=== PATIENT | male | born 1955 | race Hispanic/Latino ===

== ENCOUNTER 2021-02-02 12:36 | Inpatient (IN) | payer OTHER ==
--- OUTSIDE RECORDS SUMMARY | 2021-02-02 12:39 | XMS REPORT | Continuity of Care Document ---
:1955 Author Organization [facility] t Address [address] [place] [address] Care Team Providers Name Role Phone Mark FAIR, Christopher Ross Attending Clinician Doctor Unassigned, Name Attending Clinician Unavailable Problems This patient has no known problems. Allergies, Adverse Reactions, Alerts This patient has no known allergies or adverse reactions. Medications This patient has no known medications. Procedures This patient has no known procedures. Encounters Start End Encounter Admission Attending Care Care Encounter Source Date/Time Date/Time Type Type Clinicians Facility Department ID 2019-11-12 2019-11-12 [facility] HAMILTON Flores [id number] 12:47:59 23:59:00 Encounter Christopher ARNOLD [id number] 2019-11-12 2019-11-12 Orders Doctor WYATT [id number] 00:00:00 00:00:00 Only [facility] piedra [id number] Kimberly [facility] [id number] Results This patient has no known results.
[2021-02-02] MEDS ORDERED: ONDANSETRON 4 MG/2 ML VIAL ONE ×2 (13:32→21:32)
[2021-02-02] MEDS ORDERED: MORPHINE 4 MG/ML SYR ONE ×2 (13:32→21:32)
[2021-02-02 14:03] LABS: Absolute Lymphocytes (CBC) 1.2 K/uL (0.7-4.9); Basophils % 0.2 % (0-1.3); Hematocrit 46.2 % (39.6-49.0); Lymphocytes % 10.1 % (15.3-44.8); MPV 9.8 fL (7.6-11.3)
[2021-02-02 14:05] LABS: Protime INR 1.09
[2021-02-02] MEDS ORDERED: HYDROMORPHONE HCL 1 MG/ML INJ ONE (14:08)
--- NOTE | 2021-02-02 14:09 | RAD REPORT ---
EXAM DESCRIPTION: CT - Angio Aorta For Dissection - 02/02/2021 1:41 pm CLINICAL HISTORY: . Chest and abd pain COMPARISON: None TECHNIQUE: Computed tomography angiography of the chest, abdomen pelvis were obtained. 100 cc Isovue 370 was administered intravenously. Coronal and sagittal reconstruction were performed. MIP 3D reconstruction was performed All CT scans are performed using dose optimization technique as appropriate and may include automated exposure control or mA/KV adjustment according to patient size. FINDINGS: An aortic dissection is not seen. An aortic aneurysm is not displayed. The celiac, SMA and GHAZALA are patent . A lung consolidation is not present. A pericardial effusion is not seen. A pleural effusion is not n oted. The liver,spleen, pancreas adrenals kidneys demonstrate no significant abnormality. The appendix is normal. There no evidence diverticulitis. No ascites is noted. IMPRESSION: Negative for an aortic dissection.
--- NOTE | 2021-02-02 14:13 | RAD REPORT ---
EXAM DESCRIPTION: Hanane Single View02/02/2021 1:26 pm CLINICAL HISTORY: Chest pain COMPARISON: 2010 FINDINGS: The lungs appear clear of acute infiltrate. The heart is normal size IMPRESSION: No acute abnormalities displayed
[2021-02-02 14:29] LABS: Albumin 4.1 g/dL (3.4-5.0); Bilirubin Direct 0.2 mg/dL (0-0.2); Bilirubin Total 0.9 mg/dL (0.2-1.0); Magnesium 2.1 mg/dL (1.8-2.4); Potassium 3.8 mmol/L (3.5-5.1); Protein, Total 8.4 g/dL (6.4-8.2); Troponin (Emerg Dept Use Only) 0.07 ng/mL (0.0-0.045)
[2021-02-02] MEDS ORDERED: LIDOCAINE VISCOUS 2% SOLN 15 ML UDC ONE (14:33)
[2021-02-02] MEDS ORDERED: MAGNES/ALUMIN/SIMET 30ML UCUP ONE (14:33)
--- NOTE | 2021-02-02 15:08 | ER ---
Nurse's Notes [facility] Name: Ignacio Lozano Jr Age: 65 yrs Sex: Male : 1955 Arrival Date: 02/02/2021 Time: 12:38 Bed 5 Private MD: Casimiro Perez V Diagnosis: Chest pain, unspecified;Non-ST elevation (NSTEMI) myocardial infarction Presentation: 02/02 12:52 Chief complaint: Patient states: chest pain started after i climbed about 15 stairs, it tw2 started hurting right in the center, i started sweating when i was on top of the structure, i rested and then it went away, then i went to the office and i was talking and then i started feeling the pain again, with some nausea. Coronavirus screen: At this time, the client does not indicate any symptoms associated with coronavirus-19. Ebola Screen: Patient denies travel to an Ebola-affected area in the 21 days before illness onset. Initial Sepsis Screen: Does the patient meet any 2 criteria? No. Patient's initial sepsis screen is negative. Does the patient have a suspected source of infection? No. Patient's initial sepsis screen is negative. Risk Assessment: Do you want to hurt yourself or someone else? Patient reports no desire to harm self or others. Onset of symptoms was February 02, 2021. 12:52 Method Of Arrival: Wheelchair tw2 12:52 Acuity: DARREN 2 tw2 Triage Assessment: 12:59 General: Appears uncomfortable, Behavior is cooperative, anxious. Pain: Complains of tw2 pain in chest. Cardiovascular: Reports chest pain, diaphoresis. Historical: - Allergies: 12:58 No Known Allergies; tw2 - PMHx: 12:58 GERD; Hypertension; Hyperlipidemia; tw2 - Immunization history:: Adult Immunizations. - Social history:: Smoking status: . - Family history:: not pertinent. - Hospitalizations: : No recent hospitalization is reported. Screenin:11 Abuse screen: Denies threats or abuse. Denies injuries from another. Nutritional bp screening: No deficits noted. Tuberculosis screening: No symptoms or risk factors identified. Fall Risk None identified. Assessment: 13:00 General: SEE TRIAGE NOTE. bp 15:00 Reassessment: No changes from previously documented assessment. Patient and/or family bp updated on plan of care and expected duration. Pain level reassessed. REPEAT EKG UNCHANGED. ADMIT INITIATED. 17:00 Reassessment: No changes from previously documented assessment. Patient and/or family bp updated on plan of care and expected duration. Pain level reassessed. Cardiovascular: Rhythm is sinus rhythm. 19:00 Reassessment: Patient and/or family updated on plan of care and expected duration. Pain ea level reassessed. Patient is alert, oriented x 3, equal unlabored respirations, skin warm/dry/pink. Pt admitted to ER hold. 02/03 06:50 Reassessment: otis [id number] updated for the plan of care. rr5 Vital Signs: 02/02 12:52 BP 157 / 96; Pulse 74; Resp 22; Temp 98(O); Pulse Ox 100% on R/A; Weight 103.42 kg (R); tw2 Height 5 ft. 9 in. (175.26 cm); Pain 9/10; 14:09 BP 148 / 79; Pulse 88; Resp 20; Pulse Ox 95% on R/A; mh5 14:56 BP 154 / 94; Pulse 84; Resp 20; Pulse Ox 97% ; mh5 16:00 BP 146 / 68; Pulse 83; Resp 19; Pulse Ox 96% ; bp 17:00 BP 128 / 65; Pulse 85; Resp 16; Pulse Ox 98% ; bp 18:00 BP 160 / 78; Pulse 76; Resp 16; Pulse Ox 98% ; bp 12:52 Body Mass Index 33.67 (103.42 kg, 175.26 cm) tw2 ED Course: 12:38 Patient arrived in ED. mr 12:38 Casimiro Perez MD is Private Physician. mr 12:53 Triage completed. tw2 12:58 Arm band placed on. EKG completed in triage. Results shown to MD. tw2 12:59 Patient maintains SpO2 saturation greater than 95% on room air. tw2 13:00 Tony Castro, YESENIA is Primary Nurse. bp 13:01 Gonzalo Warner MD is Attending Physician. rn 13:10 Inserted saline lock: 20 gauge in left upper arm, using aseptic technique. Blood bp collected. 13:11 Patient has correct armband on for positive identification. Placed in gown. Bed in low bp position. Call light in reach. Side rails up X2. air sampling and monitoring on. Pulse ox on. NIBP on. 13:14 Inserted saline lock: 20 gauge in left forearm, using aseptic technique. health system 13:15 Warm blanket given. 5 13:16 Basic Metabolic Panel Sent. 5 13:16 CBC with Diff Sent. 5 13:16 LFT's Sent. 5 13:16 Magnesium Sent. 5 13:16 NT PRO-BNP Sent. health system 13:16 PT-INR Sent. health system 13:16 Troponin (emerg Dept Use Only) Sent. 5 13:30 XRAY Chest (1 view) In Process Unspecified. EDMS 13:47 CT Aorta for Dissection In Process Unspecified. EDMS 15:07 Casimiro Perez MD is Hospitalizing Provider. rn 19:13 No provider procedures requiring assistance completed. Patient admitted, IV remains in bp place. Administered Medications: 13:15 Drug: morphine 4 mg Route: IVP; Site: left upper arm; bp 19:03 Follow up: Response: Pain is decreased bp 13:15 Drug: Zofran (Ondansetron) 4 mg Route: IVP; Site: left upper arm; bp 19:03 Follow up: Response: No adverse reaction bp 13:53 Drug: HYDROmorphone 1 mg Route: IVP; Site: left antecubital; bp 19:02 Follow up: Response: No adverse reaction; Pain is decreased bp 14:22 Drug: GI Cocktail without - (Maalox Suspension 30 ml, Lidocaine Liquid 2 % 15 jd3 ml) Route: PO; 19:02 Follow up: Response: No adverse reaction bp 15:30 Drug: Aspirin Chewable Tablet 324 mg Route: PO; bp 19:02 Follow up: Response: No adverse reaction bp 15:30 Drug: Lovenox 1 mg/kg Route: Sub-Q; Site: right lower abdomen; bp 19:02 Follow up: Response: No adverse reaction bp 21:52 Drug: Heparin (ME-Bolus No thrombolytic) - HEParin 60 units/kg {Co-Signature: rr5 ea (Jaswant Carr RN).} Route: IVP; Site: left forearm; 23:47 Follow up: Response: No adverse reaction ea 21:52 Drug: Heparin (ME Drip) 12 units/kg/hr - (HEParin 34476 units, D5W 500 ml) sundeep {Co-Signature: rr5 (Jaswant Carr RN).} Route: IV; Rate: calculated rate; Site: left forearm; 23:46 Follow up: Response: No adverse reaction; IV Status: Infusion continued upon admission ea Outcome: 15:07 Decision to Hospitalize by Provider. rn 19:00 Admitted to ER Hold. Please see [facility] for further documentation. ea 19:00 Condition: stable 19:00 Instructed on the need for admit, Demonstrated understanding of instructions. 02/03 11:31 Patient left the ED. 5 Signatures: Dispatcher [employer] ASAD HedrickPatria mr WarnerGonzalo MD MD rn Wise, Tara, RN RN 2 [facility] Vaishali Tsai RN Francisco J Torres ea, RN RN jd3 Peltier, Brian, RN Jaswant Seay, RN RN rr5 Jaswant Carr RN rr5
--- NOTE | 2021-02-02 15:08 | EDPHYS ---
Physician Documentation [facility] Name: Ignacio Lozano Jr Age: 65 yrs Sex: Male : 1955 Arrival Date: 02/02/2021 Time: 12:38 Bed 5 Private MD: Casimiro Perez V ED Physician Gonzalo Warner HPI: 02/02 13:24 This 65 yrs old Male presents to ER via Wheelchair with complaints of Chest rn Pain. 13:25 The patient or guardian reports chest pain that is located primarily in the substernal rn area. Onset: just prior to arrival. The pain does not radiate. Associated signs and symptoms: Pertinent positives: diaphoresis, Pertinent negatives: shortness of breath, syncope, vomiting. The chest pain is described as aching. Duration: The patient or guardian reports a single episode, that is still ongoing. Modifying factors: The symptoms are alleviated by nothing. the symptoms are aggravated by nothing. Severity of pain: At its worst the pain was moderate in the emergency department the pain is unchanged. The patient has not experienced similar symptoms in the past. The patient has been recently seen by a physician:. Reports climbed 15 flights of stairs, began to feel winded and have chest pain, only lasted for a few minutes, went back to work, then walked down the steps again, started with chest pain this time more severe, assoc with diaphoresis, and still ongoing. Interestingly, states had normal stress test by Dr. Mccormick yesterday. . Historical: - Allergies: 12:58 No Known Allergies; tw2 - PMHx: 12:58 GERD; Hypertension; Hyperlipidemia; tw2 - Immunization history:: Adult Immunizations. - Social history:: Smoking status: . - Family history:: not pertinent. - Hospitalizations: : No recent hospitalization is reported. ROS: 13:25 Constitutional: Negative for fever, chills, and weight loss, Eyes: Negative for injury, rn pain, redness, and discharge, Neck: Negative for injury, pain, and swelling, Cardiovascular: Negative for palpitations, and edema, Respiratory: Negative for shortness of breath, cough, wheezing, and pleuritic chest pain, Abdomen/GI: Negative for abdominal pain, nausea, vomiting, diarrhea, and constipation, Back: Negative for injury and pain, MS/Extremity: Negative for injury and deformity, Skin: Negative for injury, rash, and discoloration, Neuro: Negative for headache, numbness, tingling, and seizure. Exam: 13:25 Constitutional: This is a well developed, well nourished patient who is awake, alert, rn moaning in pain Head/Face: Normocephalic, atraumatic. Neck: Trachea midline, no masses palpated, and no cervical lymphadenopathy. Supple, full range of motion without nuchal rigidity, or vertebral point tenderness. No Meningismus. Cardiovascular: Regular rate and rhythm. No murmur. No pulse deficits. Respiratory: Mild tachypnea, clear breath sounds bilaterally. Abdomen/GI: soft, non-tender Skin: Warm, dry MS/ Extremity: Pulses equal, no cyanosis. Neurovascular intact. Full, normal range of motion. Equal circumference. Neuro: Awake and alert, GCS 15, oriented to person, place, time, and situation. Cranial nerves II-XII grossly intact. Motor strength 5/5 in all extremities. Sensory grossly intact. Cerebellar exam normal. Vital Signs: 12:52 BP 157 / 96; Pulse 74; Resp 22; Temp 98(O); Pulse Ox 100% on R/A; Weight 103.42 kg (R); tw2 Height 5 ft. 9 in. (175.26 cm); Pain 9/10; 14:09 BP 148 / 79; Pulse 88; Resp 20; Pulse Ox 95% on R/A; mh5 14:56 BP 154 / 94; Pulse 84; Resp 20; Pulse Ox 97% ; mh5 16:00 BP 146 / 68; Pulse 83; Resp 19; Pulse Ox 96% ; bp 17:00 BP 128 / 65; Pulse 85; Resp 16; Pulse Ox 98% ; bp 18:00 BP 160 / 78; Pulse 76; Resp 16; Pulse Ox 98% ; bp 12:52 Body Mass Index 33.67 (103.42 kg, 175.26 cm) tw2 MDM: 13:01 Patient medically screened. rn 15:05 Differential diagnosis: abnormal EKG, acute myocardial infarction, acute pericarditis, rn anxiety, coronary artery disease costochondritis, esophagitis, gastritis, gastroesophageal reflux disease (GERD), pleurisy, pneumothorax, stable angina, thoracic aortic disection, unstable angina. The patient was given aspirin in the Emergency Department. Data reviewed: vital signs, nurses notes, lab test result(s), EKG, radiologic studies, CT scan, plain films, and as a result, I will admit patient. Counseling: I had a detailed discussion with the patient and/or guardian regarding: the historical points, exam findings, and any diagnostic results supporting the discharge/admit diagnosis, lab results, radiology results, the need for further work-up and treatment in the hospital. Response to treatment: the patient's symptoms have mildly improved after treatment, and as a result, I will admit patient. Admission orders: after a detailed discussion of the patient's condition and case, the admit orders are written by me. ED course: Consulted with Dr. mccormick, will admit, requests aspirin and lovenox x 1, then will plan for cath tomorrow. Updated patient and son.. 02/02 13:06 Order name: Basic Metabolic Panel 02/02 13:06 Order name: CBC with Diff; Complete Time: 14:21 02/02 13:06 Order name: LFT's; Complete Time: 14:45 02/02 13:06 Order name: Magnesium; Complete Time: 14:45 02/02 13:06 Order name: NT PRO-BNP; Complete Time: 14:45 02/02 13:06 Order name: PT-INR; Complete Time: 14:21 02/02 13:06 Order name: Troponin (emerg Dept Use Only); Complete Time: 14:45 02/02 13:07 Order name: Basic Metabolic Panel; Complete Time: 14:45 [facility] 02/02 19:16 Order name: COVID-19 : Document "Date of Symptom Onset" if Symptomatic. tt3 02/02 20:57 Order name: Troponin I [facility] 02/02 22:31 Order name: CORONAVIRUS [facility] 02/02 23:26 Order name: SARS-COV-2 RT PCR [facility] 02/03 01:10 Order name: CREATININE WHOLE BLOOD [facility] 02/03 01:33 Order name: Troponin I [facility] 02/02 13:06 Order name: XRAY Chest (1 view); Complete Time: 14:21 02/02 13:06 Order name: EKG; Complete Time: 13:07 rn 02/02 13:06 Order name: Cardiac monitoring; Complete Time: 13:11 rn 02/02 13:06 Order name: CT Aorta for Dissection; Complete Time: 14:21 rn 02/03 06:30 Order name: CBC with Automated Diff EDMS 02/03 06:42 Order name: Basic Metabolic Panel EDMS 02/03 06:56 Order name: PTT, Activated Partial Thromb EDMS 02/03 11:09 Order name: PTT, Activated Partial Thromb EDMS 02/02 13:06 Order name: EKG - Nurse/Tech; Complete Time: 13:10 rn 02/02 13:06 Order name: IV Saline Lock; Complete Time: 13: rn 02/02 13:06 Order name: Labs collected and sent; Complete Time: 13: rn 02/02 13:06 Order name: O2 Per Protocol; Complete Time: 13: rn 02/02 13:06 Order name: O2 Sat Monitoring; Complete Time: 13: rn Administered Medications: 13:15 Drug: morphine 4 mg Route: IVP; Site: left upper arm; bp 19:03 Follow up: Response: Pain is decreased bp 13:15 Drug: Zofran (Ondansetron) 4 mg Route: IVP; Site: left upper arm; bp 19:03 Follow up: Response: No adverse reaction bp 13:53 Drug: HYDROmorphone 1 mg Route: IVP; Site: left antecubital; bp 19:02 Follow up: Response: No adverse reaction; Pain is decreased bp 14:22 Drug: GI Cocktail without - (Maalox Suspension 30 ml, Lidocaine Liquid 2 % 15 jd3 ml) Route: PO; 19:02 Follow up: Response: No adverse reaction bp 15:30 Drug: Aspirin Chewable Tablet 324 mg Route: PO; bp 19:02 Follow up: Response: No adverse reaction bp 15:30 Drug: Lovenox 1 mg/kg Route: Sub-Q; Site: right lower abdomen; bp 19:02 Follow up: Response: No adverse reaction bp 21:52 Drug: Heparin (VA-Bolus No thrombolytic) - HEParin 60 units/kg {Co-Signature: rr5 ea (Jaswant Carr RN).} Route: IVP; Site: left forearm; 23:47 Follow up: Response: No adverse reaction ea 21:52 Drug: Heparin (VA Drip) 12 units/kg/hr - (HEParin 85469 units, D5W 500 ml) ea {Co-Signature: rr5 (Jaswant Carr RN).} Route: IV; Rate: calculated rate; Site: left forearm; 23:46 Follow up: Response: No adverse reaction; IV Status: Infusion continued upon admission ea Disposition: 02/02/21 15:07 Hospitalization ordered by Casimiro Perez for Inpatient Admission. Preliminary diagnosis are Chest pain, unspecified, Non-ST elevation (NSTEMI) myocardial infarction. - Bed requested for [facility] ER HOLD. - Status is Inpatient Admission. 5 - Condition is Stable. - Problem is new. - Symptoms have improved. Signatures: Dispatcher [employer] EDMS Gonzalo Warner MD MD rn Calderon, Audri RN YESENIA aa5 Heidy Cardoza RN RN tw2 Jamia Lopes [facility] Vaishali Tsai RN Francisco J Torres ea, RN RN jd3 Tony Castro RN Lebron Gutierrez MD MD tw4 Jaswant Carr RN rr5 Corrections: (The following items were deleted from the chart) 16:47 15:07 Hospitalization Ordered by Casimiro Perez MD for Inpatient Admission. Preliminary aa5 diagnosis is Chest pain, unspecified; Non-ST elevation (NSTEMI) myocardial infarction. Bed requested for Telemetry/MedSurg (Inpatient). Status is Inpatient Admission. Condition is Stable. Problem is new. Symptoms have improved. rn 02/03 11:31 02/02 16:47 02/02/2021 15:07 Hospitalization Ordered by Casimiro Perez MD for Inpatient [facility] Admission. Preliminary diagnosis is Chest pain, unspecified; Non-ST elevation (NSTEMI) myocardial infarction. Bed requested for [facility] ER HOLD. Status is Inpatient Admission. Condition is Stable. Problem is new. Symptoms have improved. aa5
[2021-02-02] MEDS ORDERED: ASPIRIN 81 MG CHEWABLE TABLET ONE (15:31)
[2021-02-02] MEDS ORDERED: ENOXAPARIN 100 MG/ML SYR SQ ONE (15:32)
--- NOTE | 2021-02-02 21:12 | P.SSS ---
Patient History Date of Service: 02/02/21 Reason for admission: CHEST PAIN History of Present Illness: GISELL IS A PATIENT WITH HTN AND NO SMOKING HISTORY. HE HAD STRESS TEST JUST A FEW DAYS AGO AND WAS NEGATIVE. HE WALKED UP 15 STAIRS AT WORK AND HAD CHEST PAIN. HE WAS BROUGHT TO ER. HE SAYS PAIN IMPROVES AFTER MYLANTA. HIS TROPONIN IS MILD HIGH AT0.07, EKG SHOWS RBBB AND IS KEPT OVERNIGHT TO GET CATH DONE IN AM. Allergies Peanut Allergy (Uncoded 08/18/15 17:05) Unknown Strawberries Allergy (Uncoded 08/18/15 17:05) Unknown - Past Medical/Surgical History Has patient received pneumonia vaccine in the past: Yes Diabetic: No Review of Systems 10-point ROS is otherwise unremarkable Physical Examination - Physical Exam General: Oriented x3, Mild distress HEENT: Atraumatic, PERRLA, Mucous membr. moist/pink, EOMI, Sclerae nonicteric Neck: Supple, 2+ carotid pulse no bruit, No LAD, Without JVD or thyroid abnormality Respiratory: Clear to auscultation bilaterally, Normal air movement Cardiovascular: Regular rate/rhythm, Normal S1 S2 Gastrointestinal: Normal bowel sounds, No tenderness Musculoskeletal: No tenderness Integumentary: No rashes Neurological: Normal gait, Normal speech, Normal strength at 5/5 x4 extr, Normal tone, Normal affect Lymphatics: No axilla or inguinal lymphadenopathy - Studies Laboratory Data (last 24 hrs) 02/02/21 13:10: PT 12.5, INR 1.09 02/02/21 13:10: WBC 12.10 H, Hgb 15.5, Hct 46.2, Plt Count 202 02/02/21 13:10: Sodium 141, Potassium 3.8, BUN 12, Creatinine 1.11, Glucose 131 H, Magnesium 2.1, Total Bilirubin 0.9, AST 27, ALT 42, Alkaline Phosphatase 83 - Diagnosis (Problem(s)) (1) Chest pain Current Visit: Yes Status: Acute Plan: PAIN HAS CARDIAC CHARACTER. ST TEST BE NEGATIVE IF THERE IS SIMILAR BILATERAL BLOCKAGE. CATH TO BE DONE IN AM. ASA, LOVENOX UNTIL THEN. - Disposition Disposition: ROUTINE DISCHARGE
[2021-02-02] MEDS: ONDANSETRON 4 MG/2 ML VIAL IV PRN (21:30)
[2021-02-02] MEDS: MORPHINE 4 MG/ML SYR IV PRN (21:30)
[2021-02-02] MEDS ORDERED: HEPARIN/D5W 25,000 UNIT/500 ML BAG IV ONE (22:07)
[2021-02-02] MEDS ORDERED: HEPARIN 5000 UNIT/ML 1 ML VIAL ONE (22:07)
[2021-02-02 23:33] VITALS: BMI 33.6
[2021-02-03] MEDS: MORPHINE 4 MG/ML SYR IV PRN ×2 (03:34→09:06)
[2021-02-03] MEDS: ONDANSETRON 4 MG/2 ML VIAL IV PRN ×2 (03:34→09:07)
[2021-02-03] MEDS ORDERED: MORPHINE 4 MG/ML SYR ONE ×2 (03:51→09:05)
[2021-02-03] MEDS ORDERED: ONDANSETRON 4 MG/2 ML VIAL ONE ×2 (03:51→09:05)
--- NOTE | 2021-02-03 05:11 | EKG ---
Test Date: 2021-02-02 Test Time: 21:18:20 Hair Preparer: PAOLA MEASUREMENT RESULTS: Intervals: Rate: 76 HI: 174 QRSD: 146 QT: 460 QTc: 517 [place]: P: 49 HI: 174 QRS: -83 T: 16 INTERPRETIVE STATEMENTS: Normal sinus rhythm Right bundle branch block Left anterior fascicular block Bifascicular block Septal infarct, age undetermined Lateral infarct, age undetermined Abnormal ECG Compared to ECG 02/02/2021 13:24:33 Myocardial infarct finding now present Left ventricular hypertrophy no longer present Bifascicular block still present Electronically Signed On 02-03-21 05:11:06 STRUCTURAL BIOLOGIST by Regis Mccormick
--- NOTE | 2021-02-03 05:13 | EKG ---
Test Date: 2021-02-02 Test Time: 13:24:33 Casting Machine Service Operator: BP MEASUREMENT RESULTS: Intervals: Rate: 75 [place]: 192 QRSD: 142 QT: 448 QTc: 500 [place]: P: 56 [place]: 192 QRS: -72 T: 29 INTERPRETIVE STATEMENTS: Normal sinus rhythm Right bundle branch block Left anterior fascicular block Bifascicular block Minimal voltage criteria for LVH, may be normal variant Abnormal ECG Compared to ECG 03/02/2000 06:20:00 Right bundle-branch block now present Left anterior fascicular block now present Bifascicular block now present Left ventricular hypertrophy now present Left-axis deviation no longer present Intraventricular conduction delay no longer present Electronically Signed On 02-03-21 05:11:17 FIBER PRODUCT CUTTING MACHINE OPERATOR by Regis Mccormick
--- NOTE | 2021-02-03 05:13 | EKG ---
Test Date: 2021-02-02 Test Time: 12:49:47 Regulatory Affairs Manager: CHARO MEASUREMENT RESULTS: Intervals: Rate: 76 [place]: 176 QRSD: 140 QT: 444 QTc: 499 [place]: P: 47 [place]: 176 QRS: -71 T: 37 INTERPRETIVE STATEMENTS: Normal sinus rhythm Right bundle branch block Left anterior fascicular block Bifascicular block Minimal voltage criteria for LVH, may be normal variant Abnormal ECG Compared to ECG 03/02/2000 06:20:00 Right bundle-branch block now present Left anterior fascicular block now present Bifascicular block now present Left ventricular hypertrophy now present Left-axis deviation no longer present Intraventricular conduction delay no longer present Electronically Signed On 02-03-21 05:11:21 MANAGER E LEARNING by Regis Mccormick
[2021-02-03] MEDS: METOPROLOL TAR 25 MG TAB PO SCH ×2 (06:00→17:29)
[2021-02-03] MEDS ORDERED: METOPROLOL TAR 25 MG TAB ONE (06:03)
[2021-02-03] MEDS ORDERED: ASPIRIN 81 MG CHEWABLE TABLET ONE (06:03)
[2021-02-03 06:22] LABS: Absolute Lymphocytes (CBC) 1.6 K/uL (0.7-4.9); Basophils % 0.4 % (0-1.3); Lymphocytes % 15.3 % (15.3-44.8); MPV 9.8 fL (7.6-11.3); RBC Red Blood Cell Count 4.78 M/uL (4.33-5.43)
[2021-02-03 06:42] LABS: Potassium 3.5 mmol/L (3.5-5.1)
[2021-02-03] MEDS ORDERED: ASPIRIN EC 81 MG TAB PO SCH (09:00)
[2021-02-03] MEDS ORDERED: PNEUMOCOCCAL VACCINE 0.5 ML IMVAC ONE (09:00)
--- NOTE | 2021-02-03 09:14 | CON ---
Date of Consultation: 02/02/2021 Reason For Consultation: Non-ST elevation myocardial infarction. History Of Present Illness: Mr. Lozano is a 65-year-old male, he is known to me from office visits. He recently had complaint of atypical chest pain, had a negative stress test, but [facility] room today after severe exertion with substernal chest pressure radiating to his back, some di aphoresis, nausea, shortness of breath. Denied PND, orthopnea, pedal edema, palpitations, or syncope . EKG showed left anterior hemiblock, but no acute changes, but his troponin was elevated and sugges tive of non-ST elevation myocardial infarction. He received aspirin. He was placed on a heparin dri p. We placed him on low-dose beta-vinh, and statin with the plan to do a heart catheterization on 02/03/2021. Past Medical History: Include gastroesophageal reflux disease, hypertension, dyslipidemia. Allergies: NONE. Review of Systems: Negative. Social History: Negative. Family History: Positive for heart disease. Physical Examination: General: When he first came in, his blood pressure was 157/96 with a pulse of 74, O2 saturation was 100%. He was afebrile. HEENT: Negative. Neck: Supple without any bruit, lymphadenopathy, JVD, or thyromegaly. Chest: Clear to auscultation and percussion. Cardiac: Revealed a regular rhythm and rate. No murmurs, gallops, or rubs. Abdomen: Benign. Extremities: Revealed no clubbing, cyanosis, or edema. Diagnostic Data: There was a white count of 12.1. His creatinine is 1.1. His troponin was 0.07 and a second troponin was . Impression And Plan: 1.Non-ST elevation myocardial infarction. 2.Hypertension. 3.Mixed hyperlipidemia. Plan: Plan is for a heart catheterization on 02/03/2021 to define his coronary anatomy. Understand the risk and the benefits of the procedure and he agrees to proceed. He is on heparin, which we will stop on car supervisor to the animal laboratory technician. He is on aspirin. He is on metoprolol. He is on a statin. We will make further decisions after the catheterization is done. NEIL/POLINA Voice ID: [id number] Report ID: [id number]
[2021-02-03] MEDS ORDERED: LIDOCAINE 1% 20 ML MDV ONE (11:11)
[2021-02-03] MEDS ORDERED: HEPA 1000U/500MLS 2,000 UNIT/1,000 ML BAG IV ONE (11:11)
[2021-02-03] MEDS ORDERED: HEPARIN 5000 UNIT/ML 1 ML VIAL ONE (11:12)
[2021-02-03] MEDS ORDERED: NITROGLYCERIN/D5W 25 MG/250 ML BTL IV ONE (11:13)
[2021-02-03] MEDS ORDERED: FENTANYL CITR 100 MCG/2 ML ONE (11:13)
[2021-02-03] MEDS ORDERED: VERAPAMIL HCL 10 MG/4 ML VIAL IV ONE (11:13)
[2021-02-03] MEDS ORDERED: MIDAZOLAM HCL 2 MG/2 ML INJ ONE (11:13)
[2021-02-03] MEDS ORDERED: ATROPINE SULF 1 MG/10 ML SYR IV ONE (11:13)
[2021-02-03] MEDS ORDERED: NITROGLYCERIN 100 MCG/ML SYR (for cath lab use only) IV ONE (11:13)
[2021-02-03] MEDS ORDERED: NA CHLORIDE 0.9% 500 ML ONE (11:32)
[2021-02-03] MEDS ORDERED: TICAGRELOR 90 MG TABLET PO ONE (11:56)
[2021-02-03] MEDS ORDERED: HEPA 1000U/500MLS 1,000 UNIT/500 ML BAG IV ONE (12:35)
[2021-02-03] MEDS ORDERED: ADENOSINE 6 MG/ 2ML VIAL IV ONE (12:39)
--- NOTE | 2021-02-03 13:28 | OP ---
Date of Procedure: 02/03/2021 Surgeon: ARI DEE Procedures Performed: 1.Selective coronary angiogram. 2.Left heart catheterization. 3.PCI of mid LAD 100% occlusion using 3.0 x 60 mm Synergy drug-eluting stent. Access: Right radial artery 6-Malian closed with TR band. Complications: None. Bleeding: Less than 20 mL. Indication: Acute non-ST elevation myocardial infarction. Description Of Procedure: After risks, benefits, and alternatives were explained, the patient agreed to the procedure and signed informed consent. The patient was brought into the cardiac catheterizat ion laboratory, prepped and draped in usual sterile fashion. Given fentanyl and Versed in incrementa l doses to achieve adequate moderate sedation. Then, we accessed right radial artery using pediatric micropuncture kit and placed a 6-Malian slender sheath and we took a 6-Malian JL 3.5 catheter into t he aortic root, engaged left main, took standard views and then a JR4 catheter into the aortic root, took standard views and proceeded with intervention. Intervention Details: We gave systemic heparin to assure ACT level above 250 and we gave 180 mg load ing dose of Brilinta. The patient already received aspirin today. Then, we took 6-Malian EBU 3.5 gu humberto into the aortic root, engaged left main, took a short Run-Through wire into the left main into th e LAD crossing the mid LAD total occlusion and the wire was placed at the distal LAD vessel and then using a 2.5 x 50 mm Compliant balloon, the area of occlusion was dilated. Then immediately, we had a CHRISTINA-3 flow and placed a 3.0 x 60 mm Synergy drug-eluting stent successfully across the stenosis wit h resultant 0% residual stenosis and CHRISTINA-3 flow. Initial CHRISTINA flow was 0 prior to the PCI. Then, w e removed the wire and the catheter as well as the sheath, and placed TR band with good hemostasis. Findings: 1.Left main is large and normal. 2.LAD, proximal portion is normal, moderate size, mid portion is totally occluded due to acute plaqu e rupture, status post successful PCI as outlined above with resultant CHRISTINA-3 flow. Rest of the LAD is without significant disease. On diagonal 1 branch, there is about 40% ostial otherwise. Diagonal 2 is large and no significant stenosis. 3.Left circumflex, moderate size with luminal irregularities. 4.RCA, large dominant with luminal irregularities. Conclusion: 1.Acute mid LAD 100% stenosis due to plaque rupture, which is a culprit for the SC, status post succ essful PCI as above with resultant CHRISTINA-3 flow, CHRISTINA 0 flow prior to the PCI. 2.Mild coronary artery disease otherwise. Plan: Brilinta 90 mg q.12 hours, aspirin 81 mg daily, Lipitor 80 mg at bedtime. Obtain echo and mary n to start low-dose THAO and beta-vinh. Observe for the next 24 hours. SR/MODL Voice ID: [id number] Report ID: [id number]
[2021-02-03] MEDS ORDERED: NITROGLYCERIN 0.4 MG/TAB SL PRN (14:00)
[2021-02-03] MEDS ORDERED: NA CHLORIDE 0.9% 1,000 ML IV SCH (14:00)
[2021-02-03] MEDS ORDERED: ACETAMINOPHEN 325 MG TABLET PO PRN (14:00)
--- NOTE | 2021-02-03 20:24 | P.PN ---
Subjective Date of Service: 02/03/21 Chief Complaint: CHEST PAIN Subjective: Improving HE IS READY FOR CATH TODAY WHEN I SAW HIM THIS AM. Review of Systems 10-point ROS is otherwise unremarkable Physical Examination - Vital Signs Temperature: 97.6 F Blood Pressure: 124/62 Pulse: 68 Respirations: 16 Pulse Ox (%): 96 - Physical Exam General: Alert, In no apparent distress HEENT: Atraumatic, PERRLA, EOMI Neck: Supple, JVD not distended Respiratory: Clear to auscultation bilaterally, Normal air movement Cardiovascular: Regular rate/rhythm, Normal S1 S2 Gastrointestinal: Normal bowel sounds, No tenderness Musculoskeletal: No tenderness Integumentary: No rashes Neurological: Normal speech, Normal tone, Normal affect Lymphatics: No axilla or inguinal lymphadenopathy - Studies Medications List Reviewed: Yes Assessment And Plan - Current Problems (Diagnosis) (1) Chest pain Current Visit: Yes Status: Acute Plan: PAIN HAS CARDIAC CHARACTER. ST TEST BE NEGATIVE IF THERE IS SIMILAR BILATERAL BLOCKAGE. CATH TO BE DONE IN AM. ASA, LOVENOX UNTIL THEN. (2) NSTEMI (non-ST elevated myocardial infarction) Current Visit: Yes Status: Acute Plan: STENT BLOCKAGE PER DR CASAREZ. CATH AND STENT DILATATION DONE. CONTINUE BRILINTA AND ASPIRIN. DC IN AM.
[2021-02-03] MEDS ORDERED: ATORVASTATIN 80 MG TAB PO SCH (21:00)
[2021-02-03] MEDS ORDERED: ATORVASTATIN 40 MG TAB PO SCH (21:00)
[2021-02-03] MEDS: TICAGRELOR 90 MG TABLET PO SCH (21:19)
[2021-02-04 03:40] VITALS: O2SAT 96
[2021-02-04] MEDS: METOPROLOL TAR 25 MG TAB PO SCH (06:13)
[2021-02-04] MEDS: TICAGRELOR 90 MG TABLET PO SCH (08:57)
--- NOTE | 2021-02-04 08:58 | RAD REPORT ---
EXAM DESCRIPTION: CT - Chest Angio - 02/04/2021 8:42 am CLINICAL HISTORY: Chest pain. chest pain COMPARISON: Angio Aorta For Dissection dated 02/02/2021 TECHNIQUE: CT angiogram of the pulmonary arteries was performed with MIP. All CT scans are performed using dose optimization technique as appropriate and may include automated exposure control or mA/KV adjustment according to patient size. FINDINGS: No evidence of pulmonary thromboembolism. No acute aortic finding demonstrated. The lungs are clear. No significant pericardial or pleural fluid. No concerning bony finding. IMPRESSION: No evidence of pulmonary thromboembolism. No acute lung findings.
[2021-02-04] MEDS ORDERED: ASPIRIN 81 MG CHEWABLE TABLET PO SCH (09:00)
[2021-02-04 12:27] VITALS: BP 114/59; TEMP 97.1
--- NOTE | 2021-02-04 17:42 | P.DS ---
Admission Date: 02/02/21 Discharge Date: 02/04/21 Disposition: ROUTINE DISCHARGE Reason for Admission: CHEST PAIN - Problems (1) Chest pain Status: Acute (2) NSTEMI (non-ST elevated myocardial infarction) Status: Acute Brief History of Present Illness: GISELL IS A PATIENT WITH HTN AND NO SMOKING HISTORY. HE HAD STRESS TEST JUST A FEW DAYS AGO AND WAS NEGATIVE. HE WALKED UP 15 STAIRS AT WORK AND HAD CHEST PAIN. HE WAS BROUGHT TO ER. HE SAYS PAIN IMPROVES AFTER MYLANTA. HIS TROPONIN IS MILD HIGH AT0.07, EKG SHOWS RBBB AND IS KEPT OVERNIGHT TO GET CATH DONE IN AM. Hospital Course: GISELL HAS BLOCKED STENT AND HE IS BETTER NOW. HE HAD STENT REDONE AND HE IS BETTER AND SENT HOME ON BRILLINTA AND ASPIRIN. HE WILL HAVE TO TAKE STATINS. Vital Signs/Physical Exam: Temp Pulse Resp BP Pulse Ox 97.1 F 56 17 114/59 L 97 02/04/21 12:00 02/04/21 12:00 02/04/21 12:00 02/04/21 12:00 02/04/21 12:00 Laboratory Data at Discharge: WBC 10.60 K/uL (4.3-10.9) 02/03/21 06:07 Hgb 14.8 g/dL (13.6-17.9) 02/03/21 06:07 Hct 44.0 % (39.6-49.0) 02/03/21 06:07 Plt Count 202 K/uL (152-406) 02/03/21 06:07 PT 12.5 SECONDS (9.5-12.5) 02/02/21 13:10 INR 1.09 02/02/21 13:10 APTT 78.1 SECONDS (24.3-36.9) H 02/03/21 10:37 Sodium 138 mmol/L (136-145) 02/03/21 06:07 Potassium 3.5 mmol/L (3.5-5.1) 02/03/21 06:07 BUN 11 mg/dL (7-18) 02/03/21 06:07 Creatinine 0.88 mg/dL (0.55-1.3) 02/03/21 06:07 Glucose 104 mg/dL (74-106) 02/03/21 06:07 Magnesium 2.1 mg/dL (1.8-2.4) 02/02/21 13:10 Total Bilirubin 0.9 mg/dL (0.2-1.0) 02/02/21 13:10 AST 27 U/L (15-37) 02/02/21 13:10 ALT 42 U/L (12-78) 02/02/21 13:10 Alkaline Phosphatase 83 U/L (45-117) 02/02/21 13:10 Troponin I 48.20 ng/mL (0.0-0.045) H* D 02/02/21 23:49 Home Medications: Atorvastatin Calcium [Lipitor] 80 mg PO BEDTIME #90 tab 02/04/21 Metoprolol Tartrate [Lopressor*] 25 mg PO BID 6AM 6PM #180 tab 02/04/21 Ticagrelor [Brilinta*] 90 mg PO Q12HR #90 tablet 02/04/21 New Medications: Ticagrelor [Brilinta*] 90 mg PO Q12HR #90 tablet Atorvastatin Calcium [Lipitor] 80 mg PO BEDTIME #90 tab Metoprolol Tartrate [Lopressor*] 25 mg PO BID 6AM 6PM #180 tab Followup: Regis Mccormick MD [ACTIVE - CAN ADMIT] - Casimiro Perez MD [Primary Care Provider] -
== END 2021-02-04 14:28 | disposition home or self-care (01) | DRG 247 ==
LOC: ER 12:36 → ERHOLD 16:24 → 2ND 02-03 14:58
PROVIDERS: ADMIT Internal Medicine; ATTEND Internal Medicine
PROC: 027034Z Dilation of Coronary Artery, One Artery with Drug-eluting Intraluminal Device, Percutaneous Approach (ICD-10-PCS; principal; 2021-02-03)
PROC: 4A023N7 Measurement of Cardiac Sampling and Pressure, Left Heart, Percutaneous Approach (ICD-10-PCS; 2021-02-03)
PROC: B2111ZZ Fluoroscopy of Multiple Coronary Arteries using Low Osmolar Contrast (ICD-10-PCS; 2021-02-03)
DX: I21.4 Non-ST elevation (NSTEMI) myocardial infarction (principal); K21.9 Gastro-esophageal reflux disease without esophagitis; I10 Essential (primary) hypertension; E78.2 Mixed hyperlipidemia; Z91.010 Allergy to peanuts; Z91.018 Allergy to other foods; Z79.899 Other long term (current) drug therapy; Z20.822 Contact with and (suspected) exposure to COVID-19
CPT/HCPCS: 36415; 71045; 71275; 74175; 80048; 80076; 82565; 83735; 83880; 84484; 85025; 85347; 85610; 85730; 93005; 93458; 96372; 99285; C1725; C1893; C9600; J0153; J1170; J1644; J1650; J2250; J2405; J3010; J7040; Q9967; U0003

== ENCOUNTER 2024-01-01 07:05 | Day surgery (SDC) | payer OTHER ==
--- NOTE | 2023-12-28 13:34 | RAD REPORT ---
EXAM DESCRIPTION: Hanane Montalvo And Lat (2 Views)12/28/2023 1:25 pm CLINICAL HISTORY: Preop for cardiac catheterization COMPARISON: 2020 FINDINGS: The lungs appear clear of acute infiltrate. The heart is normal size IMPRESSION: No acute abnormalities displayed
[2023-12-28 13:35] LABS: Hematocrit 42.4 % (39.6-49.0); Lymphocytes % 27.1 % (15.3-44.8); MCV 91.6 fL (80-100); Platelets 182 thou/uL (152-406); RBC Red Blood Cell Count 4.62 M/uL (4.33-5.43)
[2023-12-28 13:36] LABS: Absolute Lymphocytes (CBC) 1.5 K/uL (0.7-4.9)
[2023-12-28 13:46] LABS: Potassium 4.2 mEq/L (3.5-5.1)
[2023-12-28 13:59] LABS: Protime INR 1.13
--- NOTE | 2023-12-31 15:09 | EKG ---
Test Date: 2023-12-28 Test Time: 14:12:17 Photographic Specialist: YRIS MEASUREMENT RESULTS: Intervals: Rate: 55 UT: 122 QRSD: 158 QT: 476 QTc: 455 Bim: P: 13 UT: 122 QRS: -70 T: 61 INTERPRETIVE STATEMENTS: Sinus bradycardia Right bundle branch block Left anterior fascicular block Bifascicular block Minimal voltage criteria for LVH, may be normal variant Septal infarct, age undetermined Abnormal ECG Compared to ECG 02/02/2021 21:18:20 Left ventricular hypertrophy now present Sinus rhythm no longer present Bifascicular block still present Myocardial infarct finding still present Electronically Signed On 12-31-23 15:02:13 WORKFORCE ANALYST by Julián Tran
[2024-01-01] MEDS ORDERED: NA CHLORIDE 0.9% 500 ML ONE (07:17)
[2024-01-01] MEDS ORDERED: VERAPAMIL HCL 10 MG/4 ML VIAL IV ONE (07:26)
[2024-01-01] MEDS ORDERED: FENTANYL CITR 100 MCG/2 ML ONE (07:26)
[2024-01-01] MEDS ORDERED: MIDAZOLAM HCL 2 MG/2 ML INJ ONE (07:27)
[2024-01-01] MEDS ORDERED: HEPARIN 5000 UNIT/ML 1 ML VIAL ONE (07:27)
[2024-01-01] MEDS ORDERED: ATROPINE SULF 1 MG/10 ML SYR IV ONE (07:27)
[2024-01-01] MEDS ORDERED: TICAGRELOR 90 MG TABLET PO ONE (07:28)
[2024-01-01] MEDS ORDERED: HEPARIN 10,000 UNIT/10 ML VIAL IV ONE (07:28)
[2024-01-01] MEDS ORDERED: ASPIRIN 325 MG TAB ONE (07:28)
[2024-01-01] MEDS ORDERED: CLOPIDOGREL 75 MG TABLET ONE (07:28)
[2024-01-01] MEDS ORDERED: LIDOCAINE 1% 20 ML MDV ONE (07:29)
--- NOTE | 2024-01-01 09:27 | OP ---
Date of Procedure: 01/01/2024 Surgeon: ARI DEE Procedures Performed: 1.Selective coronary angiogram. 2.Left heart catheterization. Indication: Chest pain with abnormal stress test. Access: Right radial artery, 6-Bulgarian, closed with TR band. Complications: None. Bleeding: Less than 20 mL. Total Sedation Time: 30 minutes. Description Of Procedure: After risks, benefits, and alternatives were explained, the patient agreed to the procedure and signed informed consent. The patient was brought to the cardiac catheterizatio n laboratory, prepped and draped in usual sterile fashion, then accessed right radial artery using pe diatric micropuncture kit. Placed a 6-Bulgarian Slender sheath, took 5-Bulgarian Keldron 4 catheter into aor tic root, engaged left main and took standard views, and then in the RCA and took standard views, and then the catheter was pushed over the wire into the LV, measured LVEDP. Pullback not recorded any g radient, and then removed the catheter and the sheath, placed TR band with good hemostasis. Findings: 1.Left main: Very large and normal. 2.LAD: Large vessel. In the proximal segment, there is a stent extending to the mid segment with 2 0% ISR. Rest of the LAD is with luminal irregularity. Normal diagonal branches. 3.Left circumflex: Moderate size with proximal 30% and then luminal irregularities. 4.RCA: Large and dominant. Proximal 30%, mid diffuse 30%, and then luminal irregularities. 5.LVEDP of 13 mmHg. Conclusion: Mild nonobstructive coronary artery disease with widely patent LAD stent. Plan: Medical management. /RENATOL Voice ID: [id number] Report ID: [id number]
[2024-01-01 10:07] VITALS: TEMP 97.8
[2024-01-01 11:38] VITALS: BP 150/68; O2SAT 100
== END 2024-01-01 10:35 | disposition home or self-care (01) ==
LOC: CCL 07:05
PROVIDERS: ATTEND Internal Medicine
DX: I25.10 Atherosclerotic heart disease of native coronary artery without angina pectoris (principal); T82.855A Stenosis of coronary artery stent, initial encounter; I45.2 Bifascicular block; I10 Essential (primary) hypertension; E78.2 Mixed hyperlipidemia; K21.9 Gastro-esophageal reflux disease without esophagitis; I25.2 Old myocardial infarction; E66.9 Obesity, unspecified; Z88.8 Allergy status to other drugs, medicaments and biological substances; Z91.010 Allergy to peanuts; Z91.018 Allergy to other foods; Z82.49 Family history of ischemic heart disease and other diseases of the circulatory system
CPT/HCPCS: 93005; 85025; 80048; 36415; 83721; 85610; 85730; 71046; 93458; 76937; C1893; Q9966; J1644; J2001; J2250; J3010; J7040; 99152; 99153; J0461

== ENCOUNTER 2025-03-24 16:39 | Observation (INO) | payer OTHER ==
--- OUTSIDE RECORDS SUMMARY | 2025-03-24 16:44 | XMS REPORT | Continuity of Care Document ---
Author Name Unknown Address [address] [place] [address] [facility] Address [address] [place] [address] Care Team Providers Care Restaurant Shift Leader Name Role Phone Casimiro Rodriges Primary Care Physician [phone] Doctor Unassigned, [place] Attending Clinician U Marv Hernandez Attending Clinician QUINTIN Munguia Attending Clinician RALPH Srinivasan Attending Clinician Ralph Mariee MD Attending Clinician [phone]- [phone] Pob, [facility] Main Attending Clinician Tisha tan Doctor Unassigned, [place] Attending Clinician Gisella Gutierrez RN, Nubia Sterling Attending Clinician CARRIE Glover Attending Clinician Carrie Gupta Attending Clinician [phone] Fermin Sharpe MD Attending Clinician [phone] FERMIN SHARPE Attending Clinician Marv Velarde Admitting Clinician RALPH Carbajal Admitting Clinician Leeanna Mack MD, Ralph Smith Admitting Clinician [phone] FERMIN SHARPE Admitting Clinician Unavailabl e Payers Payer Name Policy Type Policy Number Effective Date Expirati on Date Source [employer] MANAGED MEDICARE [id number] 2020 00:00:00 MEDICARE PART A \T\ B [id number] 2018 00:00:00 [employer] INDEMNITY [id number] 2018 00:00:00 Problems Condition Name Condition Details Condition Category Status Onset Date Resolution Date Last Treatment Date Treating Clinician Comments Source Pain of left knee joint Pain of Left Knee Joint Problem Active 12-02 00:00: 00 [facility] Osteoarthr itis of left knee joint Osteoarthr itis of Left Knee Joint Problem Active 12-02 00:00: 00 [facility] Effusion of joint of right knee Effusion of Joint of Right Knee Problem Active 12-02 00:00: 00 [facility] Pain in lower limb Pain in Lower Limb Problem Active 2023-11 00:00: 00 [facility] 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 Problem Active 2023-11 00:00: 00 [facility] Pain in bilateral lower legs Pain in Bilateral Lower Legs Problem Active 2023-11 00:00: 00 [facility] Osteoarthr itis of right knee joint Osteoarthr itis of Right Knee Joint Problem Active 2023-11 00:00: 00 [facility] Pain of right knee joint Pain of Right Knee Joint Problem Active 2023-11 00:00: 00 [facility] K62.5 K62.5 Active [facility]/2022 [facility] Active 8-10 00:00: 00 2022-08-02 13:28:00 Angela Helms COLONOSCOP Y COLONOSCOP Y Active 07/05/2022 [facility] Diagnosis Active 07-05 00:00: 00 2022-08-03 05:45:00 Angela Helms Right shoulder pain Right shoulder pain Disease Active 2015-11 00:00: 00 [facility] Right shoulder pain Right shoulder pain Disease Active 2015-11 00:00: 00 [facility] Degenerati on of lumbar interverte bral disc Degenerati on of Lumbar Interverte bral Disc Problem Active 2012-11 00:00: 00 [facility] Myocardial infarction (disorder) Myocardial infarction (disorder) Resolved Problem 08/18/2022 [facility] Problem Resolve d 2022-08-18 03:35:20 Angela Helms Simple obesity (disorder) Simple obesity (disorder) Active Problem 08/18/2022 [facility] Problem Active 2022-08-18 03:35:20 Angela Helms Gastroesop hageal reflux disease (disorder) Gastroesop hageal reflux disease (disorder) Active Problem 08/18/2022 [facility] Problem Active 2022-08-18 03:35:20 Angela Helms Hypertensi ve disorder, systemic arterial (disorder) Hypertensi ve disorder, systemic arterial (disorder) Active Problem 08/18/2022 [facility] Problem Active 2022-08-18 03:35:20 Angeal Helms Allergies, Adverse Reactions, Alerts Allergy Name Allergy Type Status Severity Reaction(s) Onset Date Inactive Date Treating Clinician Comments Source losartan DA Active U UNKNOWN 2023-11 00:00: 00 [facility] alfuzosi n DA Active U UNKNOWN 2023-11 00:00: 00 [facility] tamsulos in DA Active U UNKNOWN 2023-11 00:00: 00 [facility] dutaster justin DA Active U UNKNOWN 2023-11 00:00: 00 [facility] silodosi n DA Active U UNKNOWN 2023-11 00:00: 00 [facility] omeprazo le DA Active U UNKNOWN 2023-11 00:00: 00 [facility] omeprazo le DA Active U UNKNOWN 2023-11 00:00: 00 [facility] losartan DA Active U UNKNOWN 2023-11 00:00: 00 [facility] alfuzosi n DA Active U UNKNOWN 2023-11 00:00: 00 [facility] tamsulos in DA Active U UNKNOWN 2023-11 00:00: 00 [facility] dutaster justin DA Active U UNKNOWN 2023-11 00:00: 00 [facility] silodosi n DA Active U UNKNOWN 2023-11 00:00: 00 [facility] ATORVAST ATIN DRUG INGREDI Active Unknown-Cmnt 2016-11 00:00: 00 [facility] TAMSULOS IN DRUG INGREDI Active Unknown-Cmnt 2016-11 00:00: 00 [facility] Atorvast atin Propensi ty to adverse reaction s Active Unknown - See comments 2016-11 00:00: 00 [facility] Tamsulos in Propensi ty to adverse reaction s Active Unknown - See comments 2016-11 00:00: 00 [facility] DICLOFEN AC DRUG INGREDI Active Other-Cmnt 2015-11 00:00: 00 [facility] Diclofen ac Propensi ty to adverse reaction s Active Other - See comments 2015-11 00:00: 00 Caused vibration s in his ear [facility] ALFUZOSI N DRUG INGREDI Active Unknown-Cmnt 2015-11 00:00: 00 [facility] TREE NUTS Food Active Anaphylaxis 2015-11 00:00: 00 [facility] CRANBERR Y DRUG INGREDI Active Anaphylaxis 2015-11 00:00: 00 [facility] LOSARTAN DRUG INGREDI Active SOB 2015-11 00:00: 00 [facility] OMEPRAZO LE DRUG INGREDI Active N/V 2015-11 00:00: 00 [facility] PEANUT DRUG INGREDI Active Anaphylaxis 2015-11 00:00: 00 [facility] SILODOSI N DRUG INGREDI Active Unknown-Cmnt 2015-11 00:00: 00 [facility] STRAWBER RY FLAVOR DRUG INGREDI Active Hives 2015-11 00:00: 00 [facility] Alfuzosi n Propensi ty to adverse reaction s Active Unknown - See comments 2015-11 00:00: 00 [facility] Tree Nuts Propensi ty to adverse reaction s Active Anaphylaxis 2015-11 00:00: 00 [facility] Cranberr y Propensi ty to adverse reaction s Active Anaphylaxis 2015-11 00:00: 00 [facility] Losartan Propensi ty to adverse reaction s Active Shortness of Breath 2015-11 00:00: 00 [facility] Omeprazo le Propensi ty to adverse reaction s Active Nausea and/or Vomiting 2015-11 00:00: 00 [facility] Peanut Propensi ty to adverse reaction s Active Anaphylaxis 2015-11 00:00: 00 [facility] Silodosi n Propensi ty to adverse reaction s Active Unknown - See comments 2015-11 00:00: 00 Doesn't remember [facility] Strawber ry Flavor Propensi ty to adverse reaction s Active Hives 2015-11 00:00: 00 [facility] DUTASTER JUSTIN-TAMS ULOSIN DRUG Active Other-Cmnt 2013-11 00:00: 00 [facility] Dutaster justin-Tams ulosin Propensi ty to adverse reaction s Active Other - See comments 2013-11 00:00: 00 [facility] No Known Contrast Allergie s DA Active U 2002-11 00:00: 00 [facility] No Known Drug Allergie s DA Active U 2002-11 00:00: 00 [facility] No Known Food Allergie s DA Active U 2002-11 00:00: 00 [facility] No Known Other Allergie s DA Active U 2002-11 00:00: 00 [facility] cranberr y cranberr y Active [facility] dutaster justin-tams ulosin dutaster justin-tams ulosin Active [facility] Food Strawber jose manuel Food Strawber jose manuel Active [facility] Rapaflo Rapaflo Active [facility] Lactose Allergy to substanc e Active [facility] Losartan Potassiu m Losartan Potassiu m Active [facility] omeprazo le omeprazo le Active [facility] [place] Milk Allergy to substanc e Active [facility] atorvast atin atorvast atin Active [facility] Peanut Allergy to substanc e Active [facility] Alfuzosi n Hydrochl oride Alfuzosi n Hydrochl oride Active [facility] Social History Social Habit Start Date Stop Date Quantity Comments Source [facility] 2022 14:54:52 2022 14:54:52 [facility] History of Social function 2022-04-20 00:00:00 2022-04-20 00:00:00 [facility] Exposure to SARS-CoV-2 (event) 2022-04-08 00:00:00 2022-04-18 10:05:00 Not sure [facility] Alcohol intake 2022-04-18 00:00:00 2022-04-18 00:00:00 0 /d [facility] Alcoholic beverage intake 2017-10-08 00:00:00 2017-10-08 00:00:00 0 /d [facility] Tobacco use and exposure 2016-10-05 00:00:00 2016-10-05 00:00:00 Smokeless tobacco non-user [facility] Sex assigned at 1955 00:00:00 1955 00:00:00 [facility] Smoking Status Start Date Stop Date Source Never Smoker [facility] Medications Ordered Medication Name Filled Medication Name Start Date Stop Date Current Medication? Ordering Clinician Indication Dosage Frequency Signature (SIG) Comments Components Source Sodium Chloride 0.9% IV 1,000 mL 08-03 12:06: 00 No 1,000 mL, Rate: 21 ml/hr, Infuse over: 47.6 hr, Route: IV, Dosing Weight 96.136 kg, Total Volume: 1,000, Start date: 08/03/22 7:06:00 CDT, Duration: 30 day, Stop date: 09/02/22 7:05:00 CDT, BSA: 2.18 m2, 0 Angela Helms Fish Oil 08-01 14:58: 00 Yes PO, 0 Refill(s) Angela Helms pantoprazol e 08-01 14:58: 00 Yes 40 mg, PO, Daily, # 30 tab, 0 Refill(s) Angela Helms spironolact one 100 mg oral tablet 08-01 14:58: 00 Yes 100 mg = 1 tab, PO, Daily, 0 Refill(s) Angela Helms Probiotic Formula 08-01 14:58: 00 Yes PO, Daily, 0 Refill(s) Angela Helms metoprolol tartrate 25 mg oral tablet 08-01 14:57: 00 Yes 25 mg = 1 tab, PO, BID, 0 Refill(s) Angela Helms Clenpiq oral solution 07-05 19:50: 00 Yes See Instructio ns, 160 mL PO One bottle in the evening and one bottle in the morning. Follow instructio ns given by provider., # 1 kit, 0 Refill(s) Angela Helms NIFEdipine 0.2% - lidocaine 5% compound cream 07-05 19:48: 00 Yes = 1 appl, TOP, TID, Apply to affected area as directed, # 30 gm, 1 Refill(s), 175.26, cm, 07/05/22 14:42:00 CDT, Height, 97.813, kg, 07/05/22 14:42:00 CDT, Weight Angela Helms neomycin-po lymyxin-dex amethasone (MAXITROL) 3.5 mg/g-10,000 unit/g-0.1 % ophthalmic ointment 04-20 15:38: 00 04-20 15:42 :06 No PRN, Starting on Joanna 04/20/22 at 1038, Until Joanna 04/20/22 at 1042, Routine, Intra-op [facility] gentamicin injection 04-20 15:38: 00 04-20 15:42 :06 No PRN, Starting on Joanna 04/20/22 at 1038, Until Joanna 04/20/22 at 1042, JUANCARLOS, Intra-op [facility] dexamethaso ne (DECADRON PHOSPHATE) injection 04-20 15:38: 00 04-20 15:42 :06 No PRN, Starting on Joanna 04/20/22 at 1038, Until Joanna 04/20/22 at 1042, Routine, Intra-op [facility] ceFAZolin (ANCEF) injection 04-20 15:38: 00 04-20 15:42 :06 No PRN, Starting on Joanna 04/20/22 at 1038, Until Joanna 04/20/22 at 1042, JUANCARLOS, Intra-op [facility] EPINEPHrine (PF) 1:1,000 (1 mg/mL) (ADRENALIN (PF)) injection 04-20 15:25: 00 04-20 15:42 :06 No PRN, Starting on Joanna 04/20/22 at 1025, Until Joanna 04/20/22 at 1042, Routine, Intra-op [facility] chondroitin sulf-sod hyaluronate (DUOVISC VISCO ELASTIC) intraocular injection 04-20 15:25: 00 04-20 15:42 :06 No PRN, Starting on Joanna 04/20/22 at 1025, Until Joanna 04/20/22 at 1042, Routine, Intra-op [facility] balanced salt soln no.2 irrig. (BSS) ophthalmic solution 04-20 15:25: 00 04-20 15:42 :06 No PRN, Starting on Joanna 04/20/22 at 1025, Until Joanna 04/20/22 at 1042, Routine, Intra-op [facility] NaCl 0.9% (NS) injection 04-20 15:24: 00 04-20 15:42 :06 No PRN, Starting on Joanna 04/20/22 at 1024, Until Joanna 04/20/22 at 1042, Routine, Intra-op [facility] water for irrigation irrigation solution 04-20 15:23: 00 04-20 15:42 :06 No PRN, Starting on Joanna 04/20/22 at 1023, Until Joanna 04/20/22 at 1042, Routine, Intra-op [facility] tetracaine (PONTOCAINE ) 0.5 % ophthalmic drops 04-20 15:21: 00 04-20 15:42 :06 No PRN, Starting on Joanna 04/20/22 at 1021, Until Joanna 04/20/22 at 1042, Routine, Intra-op [facility] eye block syringe 11 mL 04-20 15:20: 00 04-20 15:42 :06 No PRN, Starting on Joanna 04/20/22 at 1020, Until Joanna 04/20/22 at 1042, Intra-op [facility] cyclopent 1%-tropic 1%-phenyl 2.5%-ketor 0.5% (MYDRIATIC #5) ophthalmic solution syringe 0.5 mL 04-20 14:15: 00 04-20 14:07 :00 No .5mL 0.5 mL, Right Eye, ONCE, 1 dose, On Joanna 04/20/22 at 0915, Routine, DSU Pre-op [facility] lactated ringers IV infusion 1,000 mL 04-20 14:15: 00 04-20 14:15 :00 No 1000mL at 42 mL/hr, 1,000 mL, IV Infusion, ONCE, 1 dose, On Joanna 04/20/22 at 0915, Routine, DSU Pre-op [facility] TRAMADOL HCL (TRAMADOL ORAL) 04-20 11:34: 41 Yes Take by mouth. [facility] omega-3 fatty acids-vitam in E (FISH OIL) 1,000 mg capsule 04-20 11:34: 41 Yes 1g Take 1 g by mouth daily. [facility] Lactobacill us acidophilus (PROBIOTIC) 10 billion cell capsule 04-20 11:34: 41 Yes Take by mouth. [facility] Cholecalcif desiree, Vitamin D3, 25 mcg (1,000 unit) capsule 04-20 11:34: 41 Yes 25ug Take 25 mcg by mouth daily. [facility] irbesartan 150 mg tablet 04-20 11:34: 41 Yes 150mg Take 150 mg by mouth at bedtime. [facility] vitamin B-12 (VITAMIN B-12) 1,000 mcg tablet 04-20 11:34: 41 Yes 1000ug Take 1,000 mcg by mouth daily. [facility] coenzyme Q10 100 mg softgel 04-20 11:34: 41 Yes 100mg Take 100 mg by mouth daily. [facility] metoprolol tartrate 25 mg tablet 04-20 11:34: 41 Yes 25mg Take 25 mg by mouth 2 (two) times daily. [facility] omega-3 fatty acids-vitam in E (FISH OIL) 1,000 mg capsule 04-20 11:34: 41 Yes 1g Take 1 g by mouth daily. [facility] ESOMEPRAZOL E MAGNESIUM (NEXIUM ORAL) 04-18 09:54: 52 04-18 00:00 :00 No Take by mouth. [facility] gabapentin 100 mg capsule 04-05 00:00: 00 Yes 100mg Take 100 mg by mouth 3 (three) times daily. [facility] TRAMADOL HCL (TRAMADOL ORAL) 2016-11 22:32: 07 Yes Take by mouth. [facility] ESOMEPRAZOL E MAGNESIUM (NEXIUM ORAL) 2016-11 22:32: 07 Yes Take by mouth. [facility] omega-3 fatty acids-vitam in E (FISH OIL) 1,000 mg capsule 2016-11 22:32: 07 Yes 1g Take 1 g by mouth daily. [facility] MULTIVIT-TX NERALS/FERR OUS FUM (MULTI VITAMIN ORAL) 2016-11 22:32: 07 Yes Take by mouth. [facility] CALCIUM CARBONATE/V ITAMIN D3 (CALCIUM + D ORAL) 2016-11 22:32: 07 Yes Take by mouth. [facility] L. RHAMNOSUS GG/INULIN (CULTURELLE PROBIOTICS ORAL) 2016-11 22:32: 07 Yes Take by mouth. [facility] Lactobacill us acidophilus (PROBIOTIC) 10 billion cell capsule 2016-11 22:32: 07 Yes Take by mouth. [facility] TRAMADOL HCL (TRAMADOL ORAL) 2016-11 16:32: 07 Yes Take by mouth. [facility] omega-3 fatty acids-vitam in E (FISH OIL) 1,000 mg capsule 2016-11 16:32: 07 Yes 1g Take 1 g by mouth daily. [facility] Lactobacill us acidophilus (PROBIOTIC) 10 billion cell capsule 2016-11 16:32: 07 Yes Take by mouth. [facility] methylPREDN ISolone (MEDROL, DILSHAD,) 4 mg tablets 2016-11 00:00: 00 Yes 84mg Take 21 tablets by mouth SEE-INSTRU CTIONS. follow package directions [facility] DEXILANT 60 mg capsule 2016-11 0- 00:00: 00 04-18 00:00 :00 No TAKE ONE CAPSULE BY MOUTH EVERY DAY [facility] PROCTOSOL HC 2.5 % rectal cream 2015-11 00:00: 00 Yes APPLY RECTALLY 2 TIMES A DAY FOR 7 DAYS [facility] pentazocine -naloxone (TALWIN NX) 50-0.5 mg tablet 2015-11 00:00: 00 Yes 1{tbl} Take 1 tablet by mouth every 6 (six) hours as needed for Pain. [facility] proMETHazin e (PHENERGAN) 25 mg tablet 2015-11 00:00: 00 Yes 1 - 2 by mouth every 4-6 hours as needed for N/V [facility] diclofenac (VOLTAREN) 75 mg EC tablet 2015-11 00:00: 00 Yes 75mg Take 1 tablet by mouth 2 (two) times daily with meals. [facility] valsartan (DIOVAN) 160 mg tablet 08-25 00:00: 00 Yes [facility] Diovan 80 mg tablet RX by other Diovan 80 mg tablet RX by other 2012-11 00:00: 00 No Diovan 80 mg tablet RX by other [facility] Lipitor 10 mg tablet RX by other Lipitor 10 mg tablet RX by other 2012-11 00:00: 00 No Lipitor 10 mg tablet RX by other MD [facility] Mobic 7.5 mg tablet take 1 tablet bid with food after steriods are completed Mobic 7.5 mg tablet take 1 tablet bid with food after steriods are completed 2012-11 00:00: 00 No Mobic 7.5 mg tablet take 1 tablet bid with food after steriods are completed [facility] Nexium Packet 10 mg granules delayed release for susp RX by other Nexium Packet 10 mg granules delayed release for susp RX by other 2012-11 00:00: 00 No Nexium Packet 10 mg granules delayed release for susp RX by other MD [facility] prednisone 10 mg tablet take tablets 6,5,4,3,2,1 prednisone 10 mg tablet take tablets 6,5,4,3,2,1 2012-11 00:00: 00 No prednisone 10 mg tablet take tablets 6,5,4,3,2, 1 [facility] amoxicillin 500 mg tablet TAKE 1 TABLET BY MOUTH THREE TIMES A DAY amoxicillin 500 mg tablet TAKE 1 TABLET BY MOUTH THREE TIMES A DAY No amoxicilli n 500 mg tablet TAKE 1 TABLET BY MOUTH THREE TIMES A DAY [facility] atorvastati n 80 mg tablet TAKE 1 TABLET BY MOUTH EVERY DAY atorvastati n 80 mg tablet TAKE 1 TABLET BY MOUTH EVERY DAY No atorvastat in 80 mg tablet TAKE 1 TABLET BY MOUTH EVERY DAY [facility] bromphenira mine-pseudo ephedrine-D M 2 mg-30 mg-10 mg/5 mL oral syrup TAKE 10 ML BY MOUTH 4 TIMES A DAY NEEDED bromphenira mine-pseudo ephedrine-D M 2 mg-30 mg-10 mg/5 mL oral syrup TAKE 10 ML BY MOUTH 4 TIMES A DAY NEEDED No bromphenir amine-pseu doephedrin e-DM 2 mg-30 mg-10 mg/5 mL oral syrup TAKE 10 ML BY MOUTH 4 TIMES A DAY NEEDED [facility] cabergoline 0.5 mg tablet TAKE 1 TABLET TWICE A WEEK BY ORAL ROUTE DIRECTED, FOR FOR INTIMACY ISSUES. cabergoline 0.5 mg tablet TAKE 1 TABLET TWICE A WEEK BY ORAL ROUTE DIRECTED, FOR FOR INTIMACY ISSUES. No cabergolin e 0.5 mg tablet TAKE 1 TABLET TWICE A WEEK BY ORAL ROUTE DIRECTED, FOR FOR INTIMACY ISSUES. [facility] cholecalcif desiree (vitamin D3) 50 mcg (2,000 unit) capsule TAKE 1 CAPSULE BY MOUTH EVERY DAY cholecalcif desiree (vitamin D3) 50 mcg (2,000 unit) capsule TAKE 1 CAPSULE BY MOUTH EVERY DAY No cholecalci ferol (vitamin D3) 50 mcg (2,000 unit) capsule TAKE 1 CAPSULE BY MOUTH EVERY DAY [facility] clopidogrel 75 mg tablet TAKE 1 TABLET BY MOUTH EVERY DAY clopidogrel 75 mg tablet TAKE 1 TABLET BY MOUTH EVERY DAY No clopidogre l 75 mg tablet TAKE 1 TABLET BY MOUTH EVERY DAY [facility] famotidine 20 mg tablet TAKE 1 TABLET BY MOUTH TWICE A DAY BEFORE MEALS famotidine 20 mg tablet TAKE 1 TABLET BY MOUTH TWICE A DAY BEFORE MEALS No famotidine 20 mg tablet TAKE 1 TABLET BY MOUTH TWICE A DAY BEFORE MEALS [facility] gabapentin 300 mg capsule TAKE 1 CAPSULE BY MOUTH THREE TIMES A DAY gabapentin 300 mg capsule TAKE 1 CAPSULE BY MOUTH THREE TIMES A DAY No gabapentin 300 mg capsule TAKE 1 CAPSULE BY MOUTH THREE TIMES A DAY [facility] methylpredn isolone 4 mg tablets in a dose pack TAKE 1 TABLET BY MOUTH DIRECTED DIRECTED PLEASE FOLLOW PACKAGE INSTRUCTION methylpredn isolone 4 mg tablets in a dose pack TAKE 1 TABLET BY MOUTH DIRECTED DIRECTED PLEASE FOLLOW PACKAGE INSTRUCTION No methylpred nisolone 4 mg tablets in a dose pack TAKE 1 TABLET BY MOUTH DIRECTED DIRECTED PLEASE FOLLOW PACKAGE INSTRUCTIO N [facility] pantoprazol e 40 mg tablet,nayeli yed release TAKE 1 TABLET BY MOUTH EVERY DAY 1 HOUR BEFORE FOOD IN THE MORNING pantoprazol e 40 mg tablet,nayeli yed release TAKE 1 TABLET BY MOUTH EVERY DAY 1 HOUR BEFORE FOOD IN THE MORNING No pantoprazo le 40 mg tablet,del ayed release TAKE 1 TABLET BY MOUTH EVERY DAY 1 HOUR BEFORE FOOD IN THE MORNING [facility] spironolact one 25 mg tablet TAKE 1 TABLET BY MOUTH EVERY DAY spironolact one 25 mg tablet TAKE 1 TABLET BY MOUTH EVERY DAY No spironolac tone 25 mg tablet TAKE 1 TABLET BY MOUTH EVERY DAY [facility] tadalafil 20 mg tablet TAKE ONE (1) TABLET(S) BY MOUTH EVERY 72 HOURS NEEDED. tadalafil 20 mg tablet TAKE ONE (1) TABLET(S) BY MOUTH EVERY 72 HOURS NEEDED. No tadalafil 20 mg tablet TAKE ONE (1) TABLET(S) BY MOUTH EVERY 72 HOURS NEEDED. [facility] terazosin 5 mg capsule TAKE 1 CAPSULE BY MOUTH EVERYDAY AT BEDTIME terazosin 5 mg capsule TAKE 1 CAPSULE BY MOUTH EVERYDAY AT BEDTIME No terazosin 5 mg capsule TAKE 1 CAPSULE BY MOUTH EVERYDAY AT BEDTIME [facility] triamcinolo ne acetonide 0.1 % topical cream APPLY TO AFFECTED AREA EVERY DAY NEEDED triamcinolo ne acetonide 0.1 % topical cream APPLY TO AFFECTED AREA EVERY DAY NEEDED No triamcinol one acetonide 0.1 % topical cream APPLY TO AFFECTED AREA EVERY DAY NEEDED [facility] celecoxib 200 mg capsule TAKE 1 CAPSULE BY MOUTH once a day celecoxib 200 mg capsule TAKE 1 CAPSULE BY MOUTH once a day No celecoxib 200 mg capsule TAKE 1 CAPSULE BY MOUTH once a day [facility] doxycycline hyclate 100 mg capsule TAKE 1 CAPSULE BY MOUTH TWICE A DAY FOR 14 DAYS doxycycline hyclate 100 mg capsule TAKE 1 CAPSULE BY MOUTH TWICE A DAY FOR 14 DAYS No doxycyclin e hyclate 100 mg capsule TAKE 1 CAPSULE BY MOUTH TWICE A DAY FOR 14 DAYS [facility] hydrocodone 10 mg-acetamin ophen 325 mg tablet TAKE 1 TABLET BY MOUTH EVERY 8 HOURS NEEDED hydrocodone 10 mg-acetamin ophen 325 mg tablet TAKE 1 TABLET BY MOUTH EVERY 8 HOURS NEEDED No hydrocodon e 10 mg-acetami nophen 325 mg tablet TAKE 1 TABLET BY MOUTH EVERY 8 HOURS NEEDED [facility] methocarbam ol 750 mg tablet TAKE 1 TABLET BY MOUTH EVERY 6 HOURS NEEDED methocarbam ol 750 mg tablet TAKE 1 TABLET BY MOUTH EVERY 6 HOURS NEEDED No methocarba mol 750 mg tablet TAKE 1 TABLET BY MOUTH EVERY 6 HOURS NEEDED [facility] tizanidine 2 mg tablet TAKE 1 TABLET BY MOUTH EVERY 6 HOURS NEEDED tizanidine 2 mg tablet TAKE 1 TABLET BY MOUTH EVERY 6 HOURS NEEDED No tizanidine 2 mg tablet TAKE 1 TABLET BY MOUTH EVERY 6 HOURS NEEDED [facility] tramadol 50 mg tablet TAKE 1 TABLET BY MOUTH EVERY 6 HOURS NEEDED tramadol 50 mg tablet TAKE 1 TABLET BY MOUTH EVERY 6 HOURS NEEDED No tramadol 50 mg tablet TAKE 1 TABLET BY MOUTH EVERY 6 HOURS NEEDED [facility] Vital Signs Vital Name Observation Time Observation Value Comments S ource Body Weight 2024-12-02 00:00:00 220 [lb_av] [facility] BMI (Body Mass Index) 2024-12-02 00:00:00 32.5 kg/m2 [facility] Height 2024-12-02 00:00:00 69 [in_i] [facility] BMI (Body Mass Index) 2024-10-07 00:00:00 32.5 kg/m2 [facility] Height 2024-10-07 00:00:00 69 [in_i] [facility] Body Weight 2024-10-07 00:00:00 220 [lb_av] [facility] Systolic blood pressure 2022-04-20 15:57:00 137 mm[Hg] [facility] Diastolic blood pressure 2022-04-20 15:57:00 66 mm[Hg] [facility] Heart rate 2022-04-20 15:57:00 49 /min [facility] Respiratory rate 2022-04-20 15:57:00 16 /min [facility] Oxygen saturation in Arterial blood by Pulse oximetry 2022-04-20 15:57:00 97 /min [facility] Body temperature 2022-04-20 15:43:00 36.39 [facility] Body height 2022-04-06 16:22:00 175.3 cm [facility] Body weight 2022-04-06 16:22:00 104.3 kg [facility] BMI 2022-04-06 16:22:00 33.94 kg/m2 [facility] Heart rate 2022-04-20 15:53:00 50 /min [facility] Respiratory rate 2022-04-20 15:53:00 11 /min [facility] Oxygen saturation in Arterial blood by Pulse oximetry 2022-04-20 15:53:00 96 /min [facility] Systolic blood pressure 2022-04-20 15:52:00 139 mm[Hg] [facility] Diastolic blood pressure 2022-04-20 15:52:00 64 mm[Hg] [facility] Body temperature 2022-04-20 15:43:00 36.39 Elizabeth [facility] Body height 2022-04-06 16:22:00 175.3 cm [facility] Body weight 2022-04-06 16:22:00 104.3 kg [facility] BMI 2022-04-06 16:22:00 33.94 kg/m2 [facility] Systolic blood pressure 2021-04-07 21:28:00 144 mm[Hg] [facility] Diastolic blood pressure 2021-04-07 21:28:00 78 mm[Hg] [facility] Heart rate 2021-04-07 21:28:00 51 /[facility] Body height 2021-04-07 21:25:00 175.3 cm [facility] Body weight 2021-04-07 21:25:00 104.327 kg [facility] BMI 2021-04-07 21:25:00 33.97 kg/m2 [facility] Respitory Rate 2022-08-03 14:10:00 [facility] Rate 2022-08-03 14:00:00 [facility] Systolic (mm Hg) 2022-08-03 14:00:00 [facility] [place] [place] Diastolic (mm Hg) 2022-08-03 14:00:00 [facility] Respitory Rate 2022-08-03 13:45:00 [facility] Systolic (mm Hg) 2022-08-03 13:45:00 [facility] Diastolic (mm Hg) 2022-08-03 13:45:00 [facility] [place] Systolic (mm Hg) 2022-08-03 13:30:00 [facility] [place] Diastolic (mm Hg) 2022-08-03 13:30:00 [facility] BMI Calculated 2022-08-02 18:43:00 [facility] [place] Height 2022-08-02 18:43:00 175.26 [facility] Weight 2022-08-02 18:43:00 [facility] [place] Height 2022 14:43:00 175.26 cm [facility] Weight 2022 14:43:00 [facility] [place] BMI Calculated 2022 14:43:00 [facility] Heart Rate 2022-07-26 21:07:00 [facility] Systolic (mm Hg) 2022-07-26 21:07:00 [facility] Diastolic (mm Hg) 2022-07-26 21:07:00 [facility] Height 2022-07-26 21:07:00 175.26 cm [facility] [place] Weight 2022-07-26 21:07:00 [facility] BMI Calculated 2022-07-26 21:07:00 [facility] Heart Rate 2022-07-05 19:42:00 [facility] [place] Systolic (mm Hg) 2022-07-05 19:42:00 [facility] Diastolic (mm Hg) 2022-07-05 19:42:00 [facility] Height 2022-07-05 19:42:00 175.26 cm [facility] Weight 2022-07-05 19:42:00 [facility] [place] BMI Calculated 2022-07-05 19:42:00 [facility] Procedures Procedure Date / Time Performed Performing Clinician Source XR, knee, 3 view 2024-12-02 00:00:00 [facility] XR, knee, 4 or more view 2024-12-02 00:00:00 [facility] Total Replacement of Right Knee Joint 2024-10-15 00:00:00 [facility] XR, knee, 4 or more view 2024-10-07 00:00:00 [facility] XR, bone length, hip to ankle 2024-10-07 00:00:00 [facility] Anoscopy; diagnostic, including collection of specimen(s) by brushing or washing, when performed (separate procedure) 2022-07-05 19:48:00 [facility] PHACOEMULSIFICATION OF CATARACT WITH INTRAOCULAR LENS IMPLANT 2022-04-20 15:11:00 Ralph Mack [facility] ASSIGNMENT OF BENEFITS 2022-04-13 15:58:28 Doctor Unassigned, [place] [facility] XR KNEE 3 VW BILATERAL 2021-04-07 21:19:36 Carrie Pleitez [facility] NON [facility] FACILITY DOCUMENTATION 2019-11-12 06:01:00 Doctor Unassigned, [place] [facility] Bone repair operation [facility] Excision of meniscus of knee [facility] Rotator cuff repair [facility] PCI - Percutaneous coronary intervention [facility] Carpal Tunnel Surgery [facility] Eye [facility] Heart Stent [facility] Knee Surgery [facility] Shoulder Surgery [facility] Wrist [facility] Encounters Start Date/Time End Date/Time Encounter Type Admission Type Attending Clinicians Care Facility Care Department Encounter ID Source 2024-09-29 08:43:00 Outpatient [facility] [id number] [facility] 2022-01-13 08:58:03 Outpatient [facility] [id number] [facility] 2017-10-08 00:00:00 2025-01-10 03:33:39 Orders Only Doctor Unassigned, [place] Doctor Unassigned, [place] [facility] [id number] 350.1.13.10 4.2.7.2.686 [id number] [facility] 2024-12-02 00:00:00 2024-12-02 00:00:00 Marv Freeman MD: [address] [place] [address] , Ph. [phone] [facility] [place] [facility] [place] - FOG_Ofc [address] [place] [id number] [facility] 2024-10-15 09:37:00 2024-10-15 19:50:00 Inpatient EL Marv Freeman HCATO SURG [id number] [facility] 2024-10-15 00:00:00 2024-10-15 00:00:00 aMrv Freeman MD: [address] [place] [address] , Ph. [phone] [facility] [place] [facility] [place] [facility]OG_Surgery [id number] [facility] 2024-10-07 19:06:00 2024-10-07 19:06:00 Outpatient Marv Freeman HCAWU REFE [id number] [facility] 2024-10-07 19:05:00 2024-10-07 19:05:00 Outpatient Marv Freeman HCACL LABO [id number] [facility] 2024-10-07 00:00:00 2024-10-07 00:00:00 Marv Freeman MD: [address] [place] [id number] , Ph. [phone] [facility] [place] [facility] [place] [facility] [place] [id number] [facility] 2022-08-14 14:16:56 2022-08-16 04:59:59 Phone Message nullFlavo r [facility] [id number] Angela Nunezann 2022-08-03 10:45:00 2022-08-03 14:14:00 Bedded Outpatient nullFlavo r [facility] [id number] Angela shay [place] 2022-08-03 05:45:00 2022-08-03 09:14:00 Outpatient QUINTIN CARLOS [facility] [id number] [facility] 2022-08-03 08:00:00 2022-08-03 08:00:00 Outpatient MHIE MHIE [id number] Angela shay [place] 2022-07-26 20:30:00 2022-07-27 04:59:59 Outpatient nullFlavo r [facility] [id number] Angela shay [place] 2022-07-05 19:00:00 2022-07-06 04:59:59 Outpatient nullFlavo r [facility] [id number] [facility] Limagrzegorz shay [place] 2022-04-20 09:01:00 2022-04-20 11:17:00 Outpatient R RALPH MACK [facility] OPH [id number] [facility] 2022-04-20 09:01:00 2022-04-20 11:17:00 Hospital Encounter Ralph Mack [facility] 1.2.840.114 350.1.13.10 4.2.7.2.686 [id number] [facility] 2022-04-20 10:19:00 2022-04-20 10:53:00 Surgery Ralph Mack [facility] 1.2.840.114 350.1.13.10 4.2.7.2.686 [id number] [facility] 2022-04-13 10:45:00 2022-04-13 11:00:00 [facility] Planter Visit Pob, Adc Lab Main Ralph Mack Luis [facility] CHERIE FISHER [facility] 1.840.114 350.1.13.10 4.2.7.2.686 [id number] [facility] 2022-04-13 10:45:00 2022-04-13 10:45:00 Outpatient RALPH ROSS [facility] [id number] [facility] 2022-04-13 00:00:00 2022-04-13 00:00:00 Orders Only Doctor Unassigned, [place] [facility] 1.840.114 350.1.13.10 4.2.7.2.686 [id number] [facility] 2021-07-16 00:00:00 2021-07-16 00:00:00 Letter (Out) Nubia Gutierrez [facility] 1.840.114 350.1.13.10 4.2.7.2.686 [id number] [facility] 2021-07-15 10:30:00 2021-07-15 10:30:00 Outpatient R [facility] [id number] [facility] 2021-04-08 10:00:00 2021-04-08 10:00:00 Outpatient Hellen PLEITEZ CARRIE [facility] [id number] [facility] 2021-04-07 16:19:35 2021-04-07 23:59:00 Hospital Encounter Pricilla [facility] martha Nieves 1.840.114 350.1.13.10 4.2.7.2.686 [id number] [facility] 2021-04-07 16:19:35 2021-04-07 23:59:00 Outpatient R PRICILLA [facility] [id number] [facility] 2021-04-07 16:16:37 2021-04-07 16:31:37 Office Visit Pleitez, [facility] martha Nieves 1.2.840.114 350.1.13.10 4.2.7.2.686 [id number] [facility] 2019-11-12 12:47:59 2019-11-12 23:59:00 Hospital Encounter Fermin Sharpe [facility] 1.2.840.114 350.1.13.10 4.2.7.2.686 [id number] 2019-11-12 12:47:59 2019-11-12 23:59:00 Hospital Encounter Fermin Sharpe [facility] 1.2.840.114 350.1.13.10 4.2.7.2.686 [id number] [facility] 2019-11-12 00:00:00 2019-11-12 00:00:00 Orders Only Doctor Unassigned, [place] [facility] 1.2.840.114 350.1.13.10 4.2.7.2.686 [id number] 2019-11-12 00:00:00 2019-11-12 00:00:00 Orders Only Doctor Unassigned, [place] [facility] 1.2.840.114 350.1.13.10 4.2.7.2.686 [id number] [facility] 2019-11-10 15:50:05 2019-11-10 23:59:00 Outpatient R FERMIN SHARPE [facility] [id number] [facility] Results Test Description Test Time Test Comments Results Result Co mments Source GLYCOSYLATED HEMOGLOBIN (HA1C)2024-10-07 21:53:00* Test Item Value Reference Range Interpretation Comme nts GLYCOSYLATED HEMOGLOBIN (HA1C) (test code = GLYHGB) 5.7 % 4.8-5.9 Any conditi on that shortens erythocyte survival or decreasesmean erythrocyte age (e.g., recovery from acute blood loss,hemolytic anemai) will falsely lower HGBA1c resultsregardless of the method used. HGBA1c results frompatients with HbSS, HbCC and HbSc must be interpreted withcaution given the pathological processes, including anemia,increased red cell turnover, transfusion requirements, thatadversely impact HGBA1c as a marker of long-term glycemiccontrol. Alternative forms of testing such as fructosamineshould be considered for these patients.Any condition that shortens erythocyte survival or decreasesmean erythrocyte age (e.g., recovery from acute blood loss,hemolytic anemia) will falsely lower HGBA1c resultsregardless of the method used. HGBA1c results from patientswith HbSS, HbCC, and HbSc must be interpreted with cautiongiven the pathological processes, including anemia,increased red cell turnover, transfusion requirements, thatadversely impact HGBA1c as a marker of long-term glycemiccontrol. Alternative forms of testing such as fructosamineshould be considered for these patients.DONE AT: [facility] [address] [place] [address] GLYCOSYLATED HEMOGLOBIN (HA1C)2024-10-07 21:53:00* Test Item Value Reference Range Interpretation Comme nts GLYCOSYLATED HEMOGLOBIN (HA1C) (test code = GLYHGB) 5.7 % 4.8-5.9 N Any conditi on that shortens erythocyte survival or decreasesmean erythrocyte age (e.g., recovery from acute blood loss,hemolytic anemia) will falsely lower HGBA1c resultsregardless of the method used. HGBA1c results from patientswith HbSS, HbCC, and HbSc must be interpreted with cautiongiven the pathological processes, including anemia,increased red cell turnover, transfusion requirements, thatadversely impact HGBA1c as a marker of long-term glycemiccontrol. Alternative forms of testing such as fructosamineshould be considered for these patients. PROTHROMBIN [id number] 19:33:00* Test Item Value Reference Range Interpretation Comme nts PROTHROMBIN TIME PATIENT (test code = PTP) 11.6 secs 9.4-12.5 N INTERNATIONAL NORMAL RATIO (test code = INR) 1.08 <2.0 RECOMMENDED THER APEUTIC RANGE FOR ORAL ANTICOAGULANTTREATMENT: CONDITION INRProphylaxis of venous thrombosis in 2.0 - 3.0 high-risk medical or surgical patientsTreatment of venous thrombosis 2.0 - 3.0Prevention of embolism 2.0 - 3.0Prevention of recurrent embolism, or 3.0 - 4.5 patients with mechanical prosthetic intravascular valves IS PATIENT ON ANTICOAGULANTS ? YLIST ANTICOAGULANT/ANTI PLT MEDICATION : Clopidogrel (Anti-PLT)Has Lab been notified if Patient is on Heparin Drip? NO THROMBOPLASTIN TIME [id number] 19:33:00* Test Item Value Reference Range Interpretation Comme nts PTT ACTIVATED (test code = APTT) 30.9 secs 25.1-36.5 N IS PATIENT ON ANTICOAGULANTS ? YLIST ANTICOAGULANT/ANTI PLT MEDICATION : Clopidogrel (Anti-PLT)Has Lab been notified if Patient is on Heparin Drip? NO COMPREHENSIVE METABOLIC [id number] 19:31:00* Test Item Value Reference Range Interpretation Comme nts SODIUM (test code = NA) 141 mmol/L 136-145 N POTASSIUM (test code = K) 4.3 mmol/L 3.5-5.1 N CHLORIDE (test code = CL) 102.0 mmol/L 98-107 N CARBON DIOXIDE (test code = CO2) 31.7 mmol/L 21-32 N GLUCOSE (test code = GLU) 95 mg/dL 74-106 N BLOOD UREA NITROGEN (test code = BUN) 23 mg/dL 7-18 H GLOMERULAR FILTRATION RATE (test code = GFR) 71.8 >60 The Glomerular Filtration Rate is a calculated parameterbased on serum Creatinine, patient age and sex. GFR valuesless than 60 mL/min/1.73 square meters are indicative ofChronic Kidney Disease. Values less than 15 mL/min/1.73square meters indicate Kidney failure. The calculation forGFR is based on the CKD-EPI (2020) calculation. This formulais race indifferent and is the recommended formula for GFRby the National Kidney Foundation for Adults.The GFR will not calculate if the sex is unknown or if thepatient's age is <18 years. CREATININE (test code = CREAT) 1.10 mg/dL 0.70-1.30 N TOTAL PROTEIN (test code = PROT) 7.7 g/dL 6.4-8.2 N ALBUMIN (test code = ALB) 4.0 g/dL 3.4-5.0 N GLOBULIN (test code = GLOB) 3.7 g/dL 2.2-4.2 N ALBUMIN/GLOBULIN RATIO (test code = A/G) 1.1 0.7-2.0 N CALCIUM (test code = CA) 9.1 mg/dL 8.5-10.1 N BILIRUBIN TOTAL (test code = BILT) 0.70 mg/dL 0.2-1.00 N SGOT/AST (test code = AST) 27.0 U/L 15-37 N SGPT/ALT (test code = ALT) 59.0 U/L 16-63 N ALKALINE PHOSPHATASE TOTAL (test code = ALKP) 81 U/L 46-116 N CBC W/AUTO [id number] 19:06:00* Test Item Value Reference Range Interpretation Comme nts WHITE BLOOD CELL (test code = WBC) 8.7 K/mm3 5.5-11.0 N RED BLOOD CELL (test code = RBC) 4.99 M/mm3 4.2-5.4 N HEMOGLOBIN (test code = HGB) 15.5 g/dL 12-16 N HEMATOCRIT (test code = HCT) 45.2 % 37-47 N MEAN CELL VOLUME (test code = MCV) 91 fL 80-98 N MEAN CELL HGB (test code = MCH) 31.1 pg 27-34 N MEAN CELL HGB CONCENTRATION (test code = MCHC) 34.3 g/dL 30.8-34.1 H RED CELL DISTRIBUTION WIDTH (test code = RDW) 13.2 % 11-16 N PLT (test code = PLT) 244 K/mm3 130-400 N MEAN PLATELET VOLUME (test c ode = MPV) 10.8 fL 8.9-12.1 N NEUTROPHIL % (test code = NT%) 63.6 % 45-70 N LYMPHOCYTE % (test code = LY%) 23.2 % 20-40 N MONOCYTE % (test code = MO%) 11.1 % 3-10 H EOSINOPHIL % (test code = EO%) 1.1 % 1-5 N BASOPHIL % (test code = BA%) 0.3 % 0.0-1.1 N NEUTROPHIL # (test code = NT#) 5.53 K/mm3 2.00-7.50 N LYMPHOCYTE # (test code = LY#) 2.02 K/mm3 1.50-4.00 N MONOCYTE # (test code = MO#) 0.97 K/mm3 0.2-0.8 H EOSINOPHIL # (test code = EO#) 0.10 K/mm3 0.04-0.4 N BASOPHIL # (test code = BA#) 0.03 K/mm3 0.02-0.10 N MANUAL DIFF REQUIRED (test c ode = MDIFF) NO MANUAL DIFF NUCLEATED RED BLOOD CELL (te st code = NRBC) 0 % 0-0 N Methicillin resistant Staphylococcus aureus [Presence] in Specimen by Organism specific [id number] 18:35:00* Test Item Value Reference Range Interpretation Comme nts MRSA surveillance screen (te st code = MRSA surveillance screen) See Below performing lab: (test code = performing lab:) [facility] [id number] 18:35:00 * Test Item Value Reference Range Interpretation Comme nts mssa PCR surveillance screen (test code = mssa PCR surveillance screen) See Below performing lab: (test code = performing lab:) [facility] Auto Differential panel - [id number] 18:35:00* Test Item Value Reference Range Interpretation Comme nts white blood cell (test code = white blood cell) 8.7 K/mm3 5.5-11.0 red blood cell (test code = red blood cell) 4.99 M/mm3 4.2-5.4 hemoglobin (test code = hemoglobin) 15.5 g/dL 12-16 hematocrit (test code = hematocrit) 45.2 % 37-47 mean cell volume (test code = mean cell volume) 91 fL 80-98 mean cell HGB (test code = m david cell HGB) 31.1 pg 27-34 mean cell HGB concentration (test code = mean cell HGB concentration) 34.3 g/dL 30.8-34.1 H red cell distribution width (test code = red cell distribution width) 13.2 % 11-16 plt (test code = plt) 244 K/mm3 130-400 mean platelet volume (test c ode = mean platelet volume) 10.8 fL 8.9-12.1 neutrophil % (test code = neutrophil %) 63.6 % 45-70 lymphocyte % (test code = lymphocyte %) 23.2 % 20-40 monocyte % (test code = mono cyte %) 11.1 % 3-10 H eosinophil % (test code = eosinophil %) 1.1 % 1-5 basophil % (test code = baso mal %) 0.3 % 0.0-1.1 neutrophil # (test code = neutrophil #) 5.53 K/mm3 2.00-7.50 lymphocyte # (test code = lymphocyte #) 2.02 K/mm3 1.50-4.00 monocyte # (test code = mono cyte #) 0.97 K/mm3 0.2-0.8 H eosinophil # (test code = eosinophil #) 0.10 K/mm3 0.04-0.4 basophil # (test code = baso mal #) 0.03 K/mm3 0.02-0.10 manual diff required (test c ode = manual diff required) NO manual diff nucleated red blood cell (te st code = nucleated red blood cell) 0 % 0-0 performing lab: (test code = performing lab:) [facility]Com[facility] metabolic 2000 panel - Serum or [id number] 18:35:00* Test Item Value Reference Range Interpretation Comme nts sodium (test code = sodium) 141 mmol/L 136-145 potassium (test code = potassium) 4.3 mmol/L 3.5-5.1 chloride (test code = chloride) 102.0 mmol/L 98-107 carbon dioxide (test code = carbon dioxide) 31.7 mmol/L 21-32 glucose (test code = glucose) 95 mg/dL 74-106 blood urea nitrogen (test co de = blood urea nitrogen) 23 mg/dL 7-18 H glomerular filtration rate ( test code = glomerular filtration rate) 71.8 >60 creatinine (test code = creatinine) 1.10 mg/dL 0.70-1.30 total protein (test code = t otal protein) 7.7 g/dL 6.4-8.2 albumin (test code = albumin) 4.0 g/dL 3.4-5.0 globulin (test code = globulin) 3.7 g/dL 2.2-4.2 albumin/globulin ratio (test code = albumin/globulin ratio) 1.1 0.7-2.0 calcium (test code = calcium) 9.1 mg/dL 8.5-10.1 bilirubin total (test code = bilirubin total) 0.70 mg/dL 0.2-1.00 SGOT/AST (test code = SGOT/AST) 27.0 U/L 15-37 SGPT/ALT (test code = SGPT/ALT) 59.0 U/L 16-63 alkaline phosphatase total ( test code = alkaline phosphatase total) 81 U/L 46-116 performing lab: (test code = performing lab:) [facility] (PT)2024-10-07 18:35:00* Test Item Value Reference Range Interpretation Comme nts prothrombin time patient (te st code = prothrombin time patient) 11.6 secs 9.4-12.5 international normal ratio ( test code = international normal ratio) 1.08 <2.0 performing lab: (test code = performing lab:) [facility]in time [id number] 18:35:00 * Test Item Value Reference Range Interpretation Comme nts PTT activated (test code = P TT activated) 30.9 secs 25.1-36.5 performing lab: (test code = performing lab:) [facility] (ha1c)2024-10-07 18:35:00* Test Item Value Reference Range Interpretation Comme nts glycosylated hemoglobin (ha1 c) (test code = glycosylated hemoglobin (ha1c)) 5.7 % 4.8-5.9 performing lab: (test code = performing lab:) [facility] 25-hydroxy (total)2024-10-07 18:35:00 * Test Item Value Reference Range Interpretation Comme nts vitamin D 25-hydroxy (total) (test code = vitamin D 25-hydroxy (total)) 53.2 NG/mL 30.0-100.0 performing lab: (test code = performing lab:) [facility] HospitalCHEM [id number] 18:34:00* Test Item Value Reference Range Interpretation Comme nts Glucose Lvl (test code = Glucose Lvl) 101 70-99 BUN (test code = BUN) 17 7-22 Creatinine Lvl (test code = Creatinine Lvl) 1.23 0.50-1.40 Sodium Lvl (test code = Sodium Lvl) 136 135-145 Potassium Lvl (test code = P otassium Lvl) 4.1 3.5-5.1 Chloride Lvl (test code = Chloride Lvl) 104 95-109 CO2 (test code = CO2) 26 24-32 Calcium Lvl (test code = Calcium Lvl) 9.0 8.5-10.5 AGAP (test code = AGAP) 10.1 10.0-20.0 eGFR (test code = eGFR) 64 [id number] 18:34:00* Test Item Value Reference Range Interpretation Comme nts Segs (test code = Segs) 60.3 45.0-75.0 Lymphocytes (test code = Lymphocytes) 25.8 20.0-40.0 Monocytes (test code = Monocytes) 9.9 2.0-12.0 Eosinophils (test code = Eosinophils) 3.4 <=4.0 Basophils (test code = Basophils) 0.6 <=1.0 Neutrophils # (test code = Neutrophils #) 3.5 1.5-8.1 Lymphocytes # (test code = Lymphocytes #) 1.5 1.0-5.5 Monocytes # (test code = Monocytes #) 0.6 <=0.8 Eosinophils # (test code = Eosinophils #) 0.2 <=0.5 WBC (test code = WBC) 5.8 3.7-10.4 RBC (test code = RBC) 4.69 4.70-6.10 Hgb (test code = Hgb) 14.9 14.0-18.0 Hct (test code = Hct) 43.6 42.0-54.0 MCV (test code = MCV) 92.8 80.0-94.0 MCH (test code = MCH) 31.7 pg 27.0-31.0 MCHC (test code = MCHC) 34.1 32.0-36.0 RDW (test code = RDW) 13.9 11.5-14.5 Platelet (test code = Platelet) 184 133-450 MPV (test code = MPV) 8.9 7.4-10.4 [facility] [id number] 18:34:00* Test Item Value Reference Range Interpretation Comme nts Coronavirus (COVID-19) RAMÓN (test code = Coronavirus (COVID-19) RAMÓN) Not Detected (08/02/22 1:34 PM) [facility] KNEE 3 VW [id number] 21:36:36He has faps-ib-ipuw osteoarthritis in the medial compartment of both knees with 6? of varus deformit y in his left knee the left knee is more advanced [facility] Date/Time Note Provider Source 2024-10-20 07:31:00 [id number] [address] PATIENT NAME: LAUREN LOZANO JR ADMIT DATE: 10/15/24 ACCOUNT NO: [id number] ROOM NO: Y.O20 AGE: 69 REPORT TYPE: DISCHARGE SUMMARY REPORT SEX: M ADMITTING PHYSICIAN:Marv Freeman MD ATTENDING PHYSICIAN:Marv Freeman MD ADMISSION DATE: 10/15/2024 09:37:00 DISCHARGE DATE: 10/15/2024 19:50:00 ADMITTING DIAGNOSIS: Degenerative joint disease, right knee. DISCHARGE DIAGNOSIS: Status post right total knee arthroplasty. OPERATIONS AND PROCEDURES: Right total knee arthroplasty HOSPITAL COURSE: On the day of admission, the above listed procedure was performed under general anesthesia with 100 mL of blood loss. The patient was mobilized with physical therapy, weightbearing as tolerated. The patient's extremity was neurovascularly intact following surgery. The dressing was clean and dry. The patient's pain was manageable with oral medications. The patient progressed with mobility and physical therapy and was ready to safely discharge home. DISCHARGE INSTRUCTIONS: Activity is weightbearing as tolerated. Hip replacement patients have posterior pose avoidance precautions for 6 weeks. DISCHARGE MEDICATIONS: DVT prophylaxis with aspirin 81 mg twice daily for 4 weeks and doxycycline 100 mg twice daily for 7 days. Follow up with Dr. Cedric Freeman in 10 days. Condition is stable. Disposition is discharge to home. Dictated By: Marv Freeman MD Date Dictated: 10/20/2024 07:31:00 Date Transcribed: 10/20/2024 07:35:51 GWS/RAG Receipt ID: [id number] Authenticated by Marv Freeman MD On 10/20/2024 01:17:57 PM at 0117 PATIENT NAME: LAUREN LOZANO JR [facility] 2024-10-15 14:15:00 [facility] ([facility]) Brief Op Note REPORT#:[id number] REPORT STATUS: Signed REPORT INITIALIZATION DATE:10/15/24 TIME: 1414 PATIENT: LAUREN LOZANO JR UNIT #: [id number] ROOM/BED: : 53 AGE: 69 SEX: M ATTEND: Marv Freeman MD ADM AUTHOR: Marv Freeman MD REPT SERVICE DT/TIME: 10/15/24 1415 * ALL edits or amendments must be made on the electronic/computer document * Op/Inv Proc Note - Brief Pre-procedure diagnosis: djd r knee Post-procedure diagnosis: same as pre procedure dx Procedures performed: r tka Primary Surgeon: ashish Carpenter Repair(s): richelle Anesthesia: general anesthesia Findings: djd Complications: none Estimated blood loss in ml's: 100 Specimens removed/altered: none at 1416 RPT #:[id number] END OF REPORT HCATO
[2025-03-24 18:18] LABS: Absolute Eosinophils 0.5 K/uL (0-0.5); Absolute Lymphocytes (CBC) 1.6 K/uL (0.7-4.9); Absolute Monocytes 0.7 K/uL (0.1-1.3); Absolute Neutrophil 2.9 K/uL (1.8-8.0); Basophils % 0.4 % (0-1.3); Eosinophils % 8.1 % (0-4.4); Hematocrit 43.3 % (39.6-49.0); MCH 30.3 pg (27.0-35.0); MCHC 34.5 g/dL (32.0-36.0); MCV 87.7 fL (80-100); MPV 8.8 fL (7.6-11.3); Monocytes % 11.7 % (3.3-12.3); Neutrophils % 50.8 % (41.7-73.7); Nucleated Red Blood Cells % 0.1 % (0-0); Platelets 214 thou/uL (152-406); RBC Red Blood Cell Count 4.94 M/uL (4.33-5.43); Red Cell Distribution Width 13.5 % (12.1-15.2)
[2025-03-24 18:26] LABS: PTT, Activated Partial Thromb 36.3 SECONDS (27.2-37.4); Protime INR 1.06
[2025-03-24 18:37] LABS: Albumin 3.9 g/dL (3.4-5.0); Bilirubin Direct 0.2 mg/dL (0-0.2); Bilirubin Indirect, Calculated 0.5 mg/dL (0.2-0.8); Bilirubin Total 0.7 mg/dL (0.2-1.0); Protein, Total 7.9 g/dL (6.4-8.2)
--- NOTE | 2025-03-24 19:35 | RAD REPORT ---
EXAM: Chest Abdomen Pelvis W Cont CLINICAL INDICATION: Male, 69 years fall, right chest/RUQ pain TECHNIQUE: CT chest, abdomen and pelvis was performed, with IV contrast, as per department protocol. Axial, sagittal and coronal reconstructions were obtained. One or more of the following dose reduction techniques were used: Automated exposure control, adjustment of the mA and/or kV according to the patient size, and/or iterative reconstruction. Unless otherwise specified, incidental findings do not require dedicated imaging follow-up. [id number]. COMPARISON: 02/04/2021, 02/02/2021 FINDINGS: ---THORAX--- LOWER NECK AND CHEST WALL: Visualized thyroid gland and soft tissues are normal. LUNGS AND AIRWAYS: Likely atelectasis in the right lung base as result of a pleural effusion and righ t pneumothorax.No dominant or clearly suspicious nodule identified. PLEURA: Small right pleural effusion. Small right-sided pneumothorax. MEDIASTINUM AND LYMPH NODES: No mediastinal mass or fluid collection. Normal size mediastinal, hilar, and axillary lymph nodes. THORACIC AORTA: No thoracic aortic aneurysm. Atherosclerotic changes are present. PULMONARY ARTERIES: Caliber is within normal limits. Unable to evaluate for pulmonary emboli due to e ither protocol or lack of contrast. HEART: Normal heart size. Moderate coronary artery calcifications.No significant pericardial effusion . ---ABDOMEN/PELVIS--- UPPER GI: No significant abnormality. LIVER: Hepatic steatosis. Benign appearing and/or stable lesions are identified. No suspicious mass. GALLBLADDER/BILE DUCTS: Cholelithiasis without CT evidence of acute cholecystitis.? PANCREAS: No mass, ductal dilation, or elle-pancreatic fluid. SPLEEN: Unremarkable. ADRENALS: No adrenal masses. KIDNEYS AND URETERS: No hydronephrosis.Low density and/or too small to characterize renal lesions whi ch are statistically benign.No renal calculi.No ureteral calculi. ABDOMINAL AORTA AND OTHER VESSELS: Mild atherosclerotic changes. PERITONEUM: No abnormal free fluid. No free air. LYMPH NODES: No pathologic lymphadenopathy. ABDOMINAL WALL: Unremarkable SMALL BOWEL/COLON: Small bowel has normal course and caliber. No colonic wall thickening or pericolon ic inflammatory changes.Normal appendix. URINARY BLADDER: Underdistended but grossly unremarkable. REPRODUCTIVE ORGANS: No pathologic process. ---COMBINED--- MUSCULOSKELETAL: Acute Right-sided seventh, eighth, ninth, 10th rib fractures which are minimally dis placed. No other evidence of significant acute trauma. Some trace right-sided subcutaneous emphysema is present likely as a result of the rib fractures. ADDITIONAL FINDINGS: None. IMPRESSION: Small right-sided hydropneumothorax with essentially nondisplaced right seventh through 10th rib frac tures. THIS REPORT CONTAINS FINDINGS THAT MAY BE CRITICAL TO PATIENT CARE. The emergent findings were commun icated to Dr. Quyen Warner on 03/24/2025 7:32 PM.
--- NOTE | 2025-03-24 20:24 | ER ---
Nurse's Notes [facility] Name: Ignacio Lozano Jr Age: 69 yrs Sex: Male : 1955 Arrival Date: 03/24/2025 Time: 16:39 Bed 26 Private MD: Diagnosis: Multiple fractures of ribs, right side;Pneumothorax, unspecified Presentation: 03/24 16:59 Chief complaint: Patient states: Pain to right rib - 7th rib broken for one week. Dr. harrison1 Chris sent pt to ER for CT scan, rib pain in liver area. "Talked to Dr. Warner.". Coronavirus screen: At this time, the client does not indicate any symptoms associated with coronavirus-19. Ebola Screen: No symptoms or risks identified at this time. Initial Sepsis Screen: Does the patient meet any 2 criteria? No. Patient's initial sepsis screen is negative. Does the patient have a suspected source of infection? No. Patient's initial sepsis screen is negative. Risk Assessment: Do you want to hurt yourself or someone else? Patient reports no desire to harm self or others. Onset of symptoms was March 24, 2025. 16:59 Method Of Arrival: Ambulatory ld1 16:59 Acuity: DARREN 3 ld1 Triage Assessment: 17:01 General: Appears in no apparent distress. uncomfortable, Behavior is calm, cooperative, ld1 appropriate for age. Pain: Complains of pain in anterior aspect of right lateral abdomen and posterior aspect of right lateral abdomen Pain does not radiate. Pain currently is 1 out of 10 on a pain scale. Quality of pain is described as throbbing, Pain began 1 week ago Is intermittent. EENT: No signs and/or symptoms were reported regarding the EENT system. Neuro: Level of Consciousness is awake, alert, obeys commands, Oriented to person, place, time, situation. Cardiovascular: Capillary refill < 3 seconds Patient's skin is warm and dry. Respiratory: Airway is patent Respiratory effort is even, unlabored. GI: Abdomen is flat, non-distended. : No signs and/or symptoms were reported regarding the genitourinary system. Derm: No signs and/or symptoms reported regarding the dermatologic system. Musculoskeletal: No signs and/or symptoms reported regarding the musculoskeletal system. Historical: - Allergies: 17:01 No Known Allergies; ld1 - PMHx: 17:01 GERD; Hyperlipidemia; Hypertension; ld1 - Immunization history:: Adult Immunizations up to date. - Infectious Disease History:: Denies. - Social history:: Smoking status: Patient denies any tobacco usage or history of. - Family history:: not pertinent. - Hospitalizations: : No recent hospitalization is reported. Screenin:00 [facility] ED Fall Risk Assessment (Adult) History of falling in the last 3 months, rg5 including since admission No falls in past 3 months (0 pts) Confusion or Disorientation No (0 pts) Intoxicated or Sedated No (0 pts) Impaired Gait No (0 pts) Mobility Assist Device Used No (0 pt) Altered Elimination No (0 pt) Score/Fall Risk Level 0 - 2 = Low Risk Oriented to surroundings, Maintained a safe environment, Provided non-skid footwear. Abuse screen: Denies threats or abuse. Nutritional screening: No deficits noted. Tuberculosis screening: No symptoms or risk factors identified. Assessment: 20:00 General: Appears in no apparent distress. comfortable, Behavior is calm, cooperative, rg5 appropriate for age. 20:00 Pain: Complains of pain in right upper quadrant Quality of pain is described as aching. rg5 Neuro: Level of Consciousness is awake, alert, obeys commands, Oriented to person, place, time. Cardiovascular: Denies chest pain. Respiratory: Reports pain with cough pain with respiration Airway is patent Trachea midline Respiratory effort is even, unlabored, Respiratory pattern is regular, symmetrical. GI: No signs and/or symptoms were reported involving the gastrointestinal system. : No signs and/or symptoms were reported regarding the genitourinary system. EENT: No deficits noted. Derm: Skin is intact, Skin is dry, Skin is normal, Skin temperature is warm. Musculoskeletal: Circulation, motion, and sensation intact. Range of motion: intact in all extremities. Vital Signs: 16:59 BP 163 / 77; Pulse 60; Resp 18; Temp 97.5(TE); Pulse Ox 100% on R/A; Weight 96.16 kg; ld1 Height 5 ft. 9 in. ; Pain 1/10; 16:59 Body Mass Index 31.31 (96.16 kg, 175.26 cm) ld1 16:59 Pain Scale: Adult ld1 ED Course: 16:43 Patient arrived in ED. im 16:51 Warner, Gonzalo, MD is Attending Physician. rn 17:01 Triage completed. ld1 17:01 Arm band placed on right wrist. ld1 18:09 Protime (+inr) Sent. bc6 18:09 Ptt, Activated Sent. bc6 18:09 LFT's Sent. bc6 18:09 Basic Metabolic Panel Sent. bc6 18:09 CBC with Diff Sent. bc6 18:10 Initial lab(s) drawn, by pr, sent to lab. Inserted saline lock: 20 gauge in left bc6 antecubital area, using aseptic technique. Blood collected. Flushed with 10 mL NS. 19:21 CT Chest, Abdomen, Pelvis - W/Contrast In Process Unspecified. EDMS 20:00 Patient has correct armband on for positive identification. Provided Education on: rg5 needs for admit. Door closed. Noise minimized. Warm blanket given. 20:00 No provider procedures requiring assistance completed. Patient admitted, IV remains in rg5 place. intact, No redness/swelling at site. 20:22 Casimiro Perez MD is Hospitalizing Provider. rn 20:43 Jose Guadalupe Ho, YESENIA is Primary Nurse. rg5 Administered Medications: 21:03 Drug: HYDROcodone-acetaminophen PO 5 mg-325 mg 1 tabs PO once Route: PO; rg5 21:45 Follow up: Response: No adverse reaction; Pain is decreased rg5 Medication: 20:00 VIS not applicable for this client. rg5 Outcome: 20:00 Admitted to ER Hold. Please see [facility] for further documentation. rg5 20:00 Condition: stable 20:00 Instructed on the need for admit, 20:23 Decision to Hospitalize by Provider. rn 03/25 15:31 Patient left the ED. ll1 Signatures: Dispatcher [employer] EDPA Gonzalo Warner MD MD rn Lewis, Lynsay, RN RN ll1 Jessika Chen RN RN ld1 Elvira Skinner [facility] Ally Lozano Jose Guadalupe Ho, YESENIA RN rg5
--- NOTE | 2025-03-24 20:24 | EDPHYS ---
Physician Documentation [facility] Name: Ignacio Lozano Jr Age: 69 yrs Sex: Male : 1955 Arrival Date: 03/24/2025 Time: 16:39 Bed 26 Private MD: ED Physician Gonzalo Warner HPI: 03/24 18:23 This 69 yrs old Male presents to ER via Ambulatory with complaints of rib pain.rn 18:23 The patient or guardian reports chest pain that is located primarily in the right rn lateral anterior chest. Onset: The symptoms/episode began/occurred 1 week(s) ago. The pain does not radiate. The chest pain is described as sharp. Modifying factors: The symptoms are alleviated by nothing. the symptoms are aggravated by palpation of area. Severity of pain: At its worst the pain was moderate in the emergency department the pain is unchanged. The patient has not experienced similar symptoms in the past. Patient sent in by his PCP Dr. Perez after fall 1 week ago, has broken rib but now having right upper quadrant tenderness and there is concern for liver injury or intraperitoneal injury.. Historical: - Allergies: 17:01 No Known Allergies; ld1 - PMHx: 17:01 GERD; Hyperlipidemia; Hypertension; ld1 - Immunization history:: Adult Immunizations up to date. - Infectious Disease History:: Denies. - Social history:: Smoking status: Patient denies any tobacco usage or history of. - Family history:: not pertinent. - Hospitalizations: : No recent hospitalization is reported. ROS: 18:23 Constitutional: Negative for fever, chills, and weight loss, Cardiovascular: Positive rn for right chest pain and right upper quadrant abdominal pain Respiratory: Negative for shortness of breath, cough, wheezing, and pleuritic chest pain, Abdomen/GI: Positive for right sided abdominal pain Exam: 20:10 Constitutional: This is a well developed, well nourished patient who is awake, alert, rn and in no acute distress. Chest/axilla: Right sided chest tenderness Cardiovascular: Regular rate and rhythm. No pulse deficits. Respiratory: No respiratory distress or retractions Abdomen/GI: Soft, nontender Vital Signs: 16:59 BP 163 / 77; Pulse 60; Resp 18; Temp 97.5(TE); Pulse Ox 100% on R/A; Weight 96.16 kg; ld1 Height 5 ft. 9 in. ; Pain 12/05; 16:59 Body Mass Index 31.31 (96.16 kg, 175.26 cm) ld1 16:59 Pain Scale: Adult ld1 MDM: 16:51 Medical Screening Exam initiated rn 20:21 Differential diagnosis: Blunt Chest Trauma Chest Wall Contusion Pleural Effusion rn Pneumothorax Pulmonary Contusion Rib Fracture. Data reviewed: vital signs, nurses notes, radiologic studies, CT scan, and as a result, I will admit patient. Consideration of Admission/Observation Patient was admitted/placed on observation. Escalation of care including admission/observation considered. Management of patient was discussed with the following: First Aid Nurse: Consulted Dr. Langley, will consult on patient tomorrow, for now oxygen, pain control, incentive spirometry and no indication for chest tube at this time.. Counseling: I had a detailed discussion with the patient and/or guardian regarding the historical points, exam findings, and any diagnostic results supporting the discharge/admit diagnosis, lab results, radiology results, the need for further work-up and treatment in the hospital. 03/24 16:52 Order name: CBC with Diff; Complete Time: 18:30 03/24 16:52 Order name: Basic Metabolic Panel; Complete Time: 18:40 03/24 16:52 Order name: LFT's; Complete Time: 18:40 03/24 16:52 Order name: Protime (+inr); Complete Time: 18:30 03/24 16:52 Order name: Ptt, Activated; Complete Time: 18:30 03/25 05:48 Order name: CBC with Automated Diff [facility] 03/25 05:53 Order name: Basic Metabolic Panel [facility] 03/24 16:52 Order name: CT Chest, Abdomen, Pelvis - W/Contrast; Complete Time: 20:08 rn 03/24 20:21 Order name: INCENTIVE SPIROMETRY 03/25 07:18 Order name: RAD [facility] 03/24 20:28 Order name: CONS Physician Consult [facility] 03/24 16:52 Order name: IV Start; Complete Time: 18:10 rn Administered Medications: 21:03 Drug: HYDROcodone-acetaminophen PO 5 mg-325 mg 1 tabs PO once Route: PO; rg5 21:45 Follow up: Response: No adverse reaction; Pain is decreased rg5 Disposition Summary: 03/24/25 20:23 Hospitalization Ordered Notes: Hospitalization Status: Observation rn Provider: Casimiro Perez rn Condition: Stable rn Problem: new rn Symptoms: have improved rn Bed/Room Type: Standard rn Location: [facility] ER HOLD(03/24/25 21:03) vc1 Room Assignment: ERHOLD-(03/24/25 21:03) vc1 Diagnosis - Multiple fractures of ribs, right side rn - Pneumothorax, unspecified rn Forms: - Medication Reconciliation Form rn - SBAR form rn - Leadership Thank You Letter rn Signatures: Dispatcher [employer] EDMS Gonzalo Warner MD MD rn Sims, Lauren RN RN ld1 Mariela Yost RN RN vc1 Jose Guadalupe Ho RN RN rg5 Corrections: (The following items were deleted from the chart) 16:52 16:52 CBC+H.LAB.BRZ ordered. EDMS EDMS 16:52 16:52 BASIC METABOLIC PANEL+C.LAB.BRZ ordered. EDMS EDMS 16:52 16:52 HEPATIC FUNCTION+C.LAB.BRZ ordered. EDMS EDMS 16:52 16:52 PROTIME (+INR)+COAG.LAB.BRZ ordered. EDMS EDMS 16:52 16:52 PTT, ACTIVATED+COAG.LAB.BRZ ordered. EDMS EDMS 16:52 16:52 Chest Abdomen Pelvis W Con+CT.RAD.BRZ ordered. EDMS EDMS 20:13 20:10 Constitutional: This is a well developed, well nourished patient who is awake, rn alert, and in no acute distress. Chest/axilla: Normal chest wall appearance and motion. Nontender with no deformity. No lesions are appreciated. rn 21:03 20:23 Telemetry/MedSurg (observation) rn vc1 21:03 20:23 rn vc1
[2025-03-24] MEDS ORDERED: HYDROCODONE/APAP 5/325 MG TAB ONE (20:57)
[2025-03-24 23:36] VITALS: BMI 31.3
[2025-03-25] MEDS ORDERED: HYDROCODONE/APAP 5/325 MG TAB PO PRN (03:11)
[2025-03-25] MEDS ORDERED: MORPHINE 2 MG/ML SYR IV PRN (03:11)
[2025-03-25] MEDS ORDERED: ONDANSETRON 4 MG/2 ML VIAL IV PRN (03:11)
[2025-03-25 05:35] LABS: Absolute Eosinophils 0.6 K/uL (0-0.5); Absolute Lymphocytes (CBC) 1.9 K/uL (0.7-4.9); Absolute Monocytes 0.7 K/uL (0.1-1.3); Absolute Neutrophil 3.2 K/uL (1.8-8.0); Basophils % 0.5 % (0-1.3); Eosinophils % 8.7 % (0-4.4); Hemoglobin 15.4 g/dL (13.6-17.9); Lymphocytes % 30.1 % (15.3-44.8); MCH 31.6 pg (27.0-35.0); MCHC 35.9 g/dL (32.0-36.0); MCV 87.9 fL (80-100); MPV 9.3 fL (7.6-11.3); Monocytes % 11.4 % (3.3-12.3); Neutrophils % 49.3 % (41.7-73.7); Nucleated Red Blood Cells % 0.1 % (0-0); Platelets 217 thou/uL (152-406); RBC Red Blood Cell Count 4.89 M/uL (4.33-5.43); Red Cell Distribution Width 13.3 % (12.1-15.2)
[2025-03-25 05:53] LABS: Anion Gap 7.8 mEq/L (5.0-15.0); Potassium 3.8 mEq/L (3.5-5.1)
--- NOTE | 2025-03-25 07:17 | RAD REPORT ---
EXAM: Chest Single View HISTORY: 69 years Male reeval pneumothorax COMPARISON: Yesterday's CT FINDINGS: LUNGS/PLEURA: Small right apical pneumothorax is unchanged. Small right pleural effusion is probably similar though not as well appreciated on this portable upright radiograph. CARDIAC/MEDIASTINUM: Stable size and configuration. UPPER ABDOMEN: No significant abnormality. BONES: Known nondisplaced rib fractures better demonstrated on CT. LINES/TUBES/OTHER: N/A IMPRESSION: Unchanged small right apical pneumothorax and probably unchanged small right effusion and associated atelectasis taking into account the portable technique and upright radiograph.
--- NOTE | 2025-03-25 11:55 | P.SSS ---
Patient History Date of Service: 03/25/25 Reason for admission: SP FALL, BROKEN RIBS, CAME TO OFFICE WITH UPPER ABDOMEN PA IN ALSO. History of Present Illness: GISELL FELL A FEW DAYS AGO OFF THE LADDER AND LANDED ON HARD OBJECT ON R RIBS. HE IS IN PAIN. I FOUND THAT HE HAD 4 RIBS FRACTURE. I ASKED HIM TO GO TO ER HE HAD RUQ PAIN. LIVER LACERATION WAS RULED OUT. HE HAS SMALL PTX THAT WILE RESOLVE. DR. PRICE AGREES AND HE IS STABLE TO GO HOME WITH LIGHT DUTY. Allergies cranberry Allergy (Verified 12/28/23 13:46) Hives/Rash alfuzosin Adverse Reaction (Verified 12/28/23 13:46) Unknown dutasteride Adverse Reaction (Verified 12/28/23 13:46) Unknown losartan Adverse Reaction (Verified 12/28/23 13:46) Unknown omeprazole Adverse Reaction (Verified 12/28/23 13:46) Unknown silodosin Adverse Reaction (Verified 12/28/23 13:46) Unknown tamsulosin Adverse Reaction (Verified 12/28/23 13:46) Unknown Peanut Allergy (Uncoded 12/28/23 13:46) Hives/Rash Strawberries Allergy (Uncoded 12/28/23 13:46) Hives/Rash Home Medications: Atorvastatin Calcium [Lipitor] 80 mg PO BEDTIME #90 tab 02/04/21 Clopidogrel Bisulfate [Plavix] 75 mg PO BEDTIME 12/28/23 Pantoprazole [Protonix Tab*] 40 mg PO DAILY 12/28/23 Spironolactone [Aldactone] 25 mg PO DAILY 12/28/23 - Past Medical/Surgical History Diabetic: No -: hypertension -: hyperlipidemia -: GERD - Social History Smoking Status: Unknown if ever smoked Review of Systems 10-point ROS is otherwise unremarkable Physical Examination - Vital Signs Temperature: 98 F Blood Pressure: 119/69 Pulse: 52 Respirations: 18 Pulse Ox (%): 98 - Physical Exam General: Alert, In no apparent distress HEENT: Atraumatic, PERRLA, Mucous membr. moist/pink, EOMI, Sclerae nonicteric Neck: Supple, 2+ carotid pulse no bruit, No LAD, Without JVD or thyroid abnormality Respiratory: Clear to auscultation bilaterally, Normal air movement Cardiovascular: Regular rate/rhythm, Normal S1 S2 Gastrointestinal: Normal bowel sounds, No tenderness Musculoskeletal: No tenderness Integumentary: No rashes Neurological: Normal gait, Normal speech, Normal strength at 5/5 x4 extr, Normal tone, Normal affect Lymphatics: No axilla or inguinal lymphadenopathy - Studies Laboratory Data (last 24 hrs) 03/24/25 03/24/25 03/24/25 18:05 18:05 18:05 WBC 5.60 Hgb 15.0 Hct 43.3 Plt Count 214 PT 12.0 INR 1.06 APTT 36.3 Sodium 137 Potassium 4.0 BUN 14 Creatinine 1.15 Glucose 109 H Total Bilirubin 0.7 AST 16 ALT 28 Alkaline Phosphatase 110 - Diagnosis (Problem(s)) (1) Ribs, multiple fractures Current Visit: Yes Status: Acute Plan: PAIN CONTROL IT WILL TAKE 2 MTHS TO HEAL HE HAS BINDER. FU IN OFFICE. Qualifiers: Encounter type: subsequent encounter (2) Pneumothorax Current Visit: Yes Status: Acute Plan: SMALL WILL RESORB. FU WITH ME IN ONE WEEK. - Disposition Disposition: ROUTINE DISCHARGE
--- NOTE | 2025-03-25 14:13 | CON ---
Date of Consultation: 03/24/2025 Reason For Consultation: Right chest pain. History Of Present Illness: The patient is a 69-year-old gentleman who came to the emergency room wi th a 12-day history of a fall off a small step while he was blowing leaves out of his gutter approxim ately 3 or 4 feet with a height at which he fell on top of the blower. He sustained injury to his ri ght chest. He went to an urgent care where they did a chest x-ray and did not see any pneumothorax a t that time. The patient was given pain medicines and was told to follow up with his PCP, which he d id. He was still in quite a bit of pain. Patient was therefore admitted for further workup and nora tment. He denies any dyspnea. No shortness of breath. Does have some chest pain, but it is managea ble and in no acute distress. No sore throat, runny nose, cough, headaches, or dizziness. No fever or chills. No other chest pain. He does have some pain on the right lateral aspect. Review of Systems: Otherwise unremarkable. Past Medical History: GERD, hyperlipidemia, and hypertension. Allergies: NO ALLERGIES. Social History: The patient does not smoke or drink alcohol. Family History: Noncontributory. Physical Examination: Vital Signs: Stable. He is afebrile. He is saturating at 100% and 99% on room air. General: He is awake, alert, oriented x3. Head and Neck: No JVD. Throat clear. Neck is supple. Trachea is midline. Chest: Clear. He has no crepitus. Some tenderness on the right lateral chest wall with some minor bruising and equal movement of air on both side. Heart: S1, S2. Abdomen: Soft, nondistended, nontender. Positive bowel sounds. Extremities: Neurovascularly intact. Neuro: Nonfocal. Laboratory Data: His x-ray and CT of the chest, abdomen and pelvis reviewed and follow up chest x-ra y reviewed. The patient does have a very small apical pneumo with hydropneumothorax, but no other si gnificant finding except for seventh, eighth, ninth and tenth rib fractures which are minimally displ aced and there is some minimal subcutaneous emphysema and hydropneumothorax is very small. Assessment: Right-sided multiple rib fractures with hydropneumothorax, small. Recommendation: Pain management, incentive spirometry. No need for chest tube. The patient is 12 d ays out from his injury is doing clinically well. Therefore, patient can be discharged home. Plan o f care and discharge discussed with Dr. Perez. [place] Voice ID: [id number] Report ID: [id number]
[2025-03-25 15:44] VITALS: BP 163/77; TEMP 97.5; O2SAT 100
== END 2025-03-25 15:30 | disposition home or self-care (01) ==
LOC: ER 16:39 → ERHOLD 20:25
PROVIDERS: ADMIT Internal Medicine; ATTEND Internal Medicine
DX: S22.41XA Multiple fractures of ribs, right side, initial encounter for closed fracture (principal); S27.1XXA Traumatic hemothorax, initial encounter; W11.XXXA Fall on and from ladder, initial encounter; Y93.9 Activity, unspecified; Y92.9 Unspecified place or not applicable; I10 Essential (primary) hypertension; E78.5 Hyperlipidemia, unspecified; K21.9 Gastro-esophageal reflux disease without esophagitis; Z88.8 Allergy status to other drugs, medicaments and biological substances; Z91.010 Allergy to peanuts; Z91.018 Allergy to other foods
CPT/HCPCS: 85025 ×2; 80048 ×2; 36415; 85610; 80076; 85730; 71260; 74177; 71045; 94010 ×3; 99285; Q9967; G0378 ×3